=== PATIENT | male | born 1955 | race Caucasian/White ===

== ENCOUNTER 2018-07-28 15:51 | Inpatient (IN) | payer OTHER ==
[~2018-07-28] VITALS: Ht 180.3 cm; Wt 99.4 kg
[2018-07-28] MEDS ORDERED: PLEASE ENTER HEIGHT AND WEIGHT MC SCH (16:30)
[2018-07-28] MEDS ORDERED: SODIUM CHLORIDE FLUSH 10ML SYR IVF ONE (16:30)
[2018-07-28] MEDS ORDERED: PLEASE ENTER ALLERGIES MC SCH (16:30)
[2018-07-28 16:49] LABS: BASOPHILS # (AUTO) 0.03 x10^3/uL (0-0.1); BASOPHILS % (AUTO) 0 % (0-1); EOSINOPHILS # (AUTO) 0.11 x10^3/uL (0-0.4); EOSINOPHILS % (AUTO) 1 % (1-7); LYMPHOCYTES # (AUTO) 1.26 x10^3/uL (1-3.4); LYMPHOCYTES % (AUTO) 8 % (22-44); MD NO; MEAN CORPUSCULAR HEMOGLOBIN 28.5 pg (27.5-34.5); MEAN CORPUSCULAR VOLUME 89.3 fL (81-97); MEAN PLATELET VOLUME 6.9 fL (7.4-10.4); MONOCYTES # (AUTO) 0.81 x10^3/uL (0.2-0.8); MONOCYTES % (AUTO) 5 % (2-9); NEUTROPHILS # (AUTO) 14.35 x10^3/uL (1.8-6.8); NEUTROPHILS % (AUTO) 87 % (42-75); PLATELET COUNT 561 x10^3/uL (130-400); RED BLOOD COUNT 4.08 x10^6/uL (4.38-5.82); RED CELL DISTRIBUTION WIDTH 15.1 % (9.4-14.8)
[2018-07-28 16:56] LABS: ALBUMIN 2.3 g/dL (3.4-5.0); ANION GAP 10 mmol/L (5-15); CHLORIDE 98 mmol/L (98-107)
[2018-07-28 17:01] LABS: CREATININE 1.98 mg/dL (0.7-1.3); TROPONIN I < 0.015 ng/mL (0.000-0.045)
--- NOTE | 2018-07-28 17:29 | NUR ---
DISCHARGE COORDINATOR: PT TO ROOM VIA WHEELCHAIR FROM
--- NOTE | 2018-07-28 17:40 | NUR ---
pt in radiology at this time.
--- NOTE | 2018-07-28 18:05 | NUR ---
pt still in radiology
--- NOTE | 2018-07-28 18:27 | NUR ---
pt presented to ed with bilateral lower extremity edema with 3+ pitting edema and bilaterla lower extremity open wounds. pt with rash throughout abd area and legs.
--- NOTE | 2018-07-28 18:28 | NUR ---
PT TO ROOM AND PLACED ON BP, CARDIAC AND CONT PULSE OXIMETER. ASSESSMENT COMPLETED. ORDERS RECEIVED.
[2018-07-28] MEDS ORDERED: VANCOMYCIN PER PHARMACY MC ONE (18:30)
[2018-07-28] MEDS ORDERED: CEFTRIAXONE PMX 1GM/50ML 50 ML IVPB ONE (18:30)
[2018-07-28] MEDS ORDERED: SODIUM CHLORIDE 0.9% 1,000ML IVBOLUS ONE (18:30)
[2018-07-28] MEDS ORDERED: SODIUM CHLORIDE 0.9% 1,000 ML IV ONE (18:40)
[2018-07-28] MEDS ORDERED: CEFTRIAXONE PMX 1GM/50ML 50 ML ONE (18:50)
--- NOTE | 2018-07-28 18:54 | NUR ---
called lab and blood cultures drawn x 2. antibiotics hung per md order.
[2018-07-28] MEDS ORDERED: VANCOMYCIN 2,100 MG in SODIUM CHLORIDE 0.9% 500 ML IV ONE (19:00)
--- NOTE | 2018-07-28 19:00 | NUR ---
Report received and care assumed. Warm blanket and pillow given for pt comfort. Declines other needs at this time. IV antibiotics infusing with NS as well. Per report, NS to infuse 150ml/hr s/t pt with severe LE swelling and hx of CHF. No bolus given. VSS. Pt with weeping wounds to bilat legs--states he has been taking antibiotics for 3 weeks with no relief and yesterday, began to feel too weak. Discussed use of call light and urinal placed at bedside. Call light in reach. Awaiting further dispo.
[2018-07-28] MEDS ORDERED: ASPI-515 PO (19:03)
[2018-07-28] MEDS ORDERED: DOXY100T PO (19:04)
[2018-07-28] MEDS ORDERED: GABA300C10 PO (19:05)
[2018-07-28] MEDS ORDERED: GLIM1TAB2 PO (19:06)
[2018-07-28] MEDS ORDERED: FURO20TA3 PO (19:06)
[2018-07-28] MEDS ORDERED: TAMS-11 PO (19:07)
[2018-07-28] MEDS ORDERED: HYDR25TA6 PO (19:07)
[2018-07-28] MEDS ORDERED: SIMV40TA3 PO (19:08)
[2018-07-28] MEDS ORDERED: SPIR25TA5 PO (19:08)
[2018-07-28] MEDS ORDERED: METF500T17 PO (19:09)
[2018-07-28] MEDS ORDERED: CETI10TA32 PO (19:10)
--- NOTE | 2018-07-28 19:10 | NUR ---
report given to chanell vivar
--- NOTE | 2018-07-28 19:55 | NUR ---
Rocephianika completed. Vancomycin infusing via pump. VSS. No needs expressed. Awaiting transfer to floor. Call light in reach.
--- NOTE | 2018-07-28 20:19 | NUR ---
Pt to floor with antibiotics and fluids infusing.
[2018-07-28 20:55] VITALS: BP 137/66
[2018-07-28] MEDS ORDERED: VANCOMYCIN PER PHARMACY MC PRN (21:30)
[2018-07-28] MEDS ORDERED: PHARMACY MAY ADJ FOR RENAL FX MC PRN (21:30)
[2018-07-28] MEDS ORDERED: SODIUM CHLORIDE 0.9% 1,000 ML IV SCH (21:38)
[2018-07-28] MEDS ORDERED: ONDANSETRON ODT 4 MG PO PRN (22:00)
[2018-07-28] MEDS ORDERED: DOCUSATE 100 MG CAPSULE PO PRN (22:00)
[2018-07-28] MEDS ORDERED: TEMAZEPAM 15 MG CAPSULE PO PRN (22:00)
[2018-07-28 22:27] LABS: BILIRUBIN, DIRECT 0.1 mg/dL (0.1-0.2)
[2018-07-28 22:29] LABS: BILIRUBIN,INDIRECT 0.1 mg/dL (0.0-2.0); BILIRUBIN,TOTAL 0.2 mg/dL (0.2-1.0)
[2018-07-28] MEDS: GABAPENTIN 300 MG CAPSULE PO SCH (22:37)
[2018-07-28] MEDS: SIMVASTATIN 40 MG TABLET PO SCH (22:38)
[2018-07-28] MEDS: HEPARIN 5,000 UNITS/ML, 1ML SQ SCH (22:38)
[2018-07-29 02:32] VITALS: BP 149/95
[2018-07-29 06:07] LABS: ANION GAP 6 mmol/L (5-15); CALCIUM 8.6 mg/dL (8.5-10.1); CHLORIDE 101 mmol/L (98-107); CREATININE 1.08 mg/dL (0.7-1.3)
[2018-07-29 06:12] LABS: BASOPHILS # (AUTO) 0.03 x10^3/uL (0-0.1); BASOPHILS % (AUTO) 0 % (0-1); EOSINOPHILS # (AUTO) 0.29 x10^3/uL (0-0.4); EOSINOPHILS % (AUTO) 2 % (1-7); LYMPHOCYTES # (AUTO) 1.19 x10^3/uL (1-3.4); LYMPHOCYTES % (AUTO) 10 % (22-44); MD NO; MEAN CORPUSCULAR HEMOGLOBIN 28.5 pg (27.5-34.5); MEAN CORPUSCULAR VOLUME 89.1 fL (81-97); MEAN PLATELET VOLUME 6.9 fL (7.4-10.4); MONOCYTES # (AUTO) 0.93 x10^3/uL (0.2-0.8); MONOCYTES % (AUTO) 8 % (2-9); NEUTROPHILS # (AUTO) 9.82 x10^3/uL (1.8-6.8); NEUTROPHILS % (AUTO) 80 % (42-75); PLATELET COUNT 474 x10^3/uL (130-400); RED BLOOD COUNT 3.54 x10^6/uL (4.38-5.82); RED CELL DISTRIBUTION WIDTH 15.3 % (9.4-14.8)
[2018-07-29] MEDS: HEPARIN 5,000 UNITS/ML, 1ML SQ SCH ×3 (06:24→21:11)
[2018-07-29] MEDS: CEFTRIAXONE PMX 1GM/50ML 50 ML IV SCH ×2 (06:25→18:10)
[2018-07-29 08:18] VITALS: BP 135/74
[2018-07-29] MEDS ORDERED: HYDROCHLOROTHIAZIDE 25 MG TABLET PO SCH (09:00)
[2018-07-29] MEDS ORDERED: SPIRONOLACTONE 25 MG TABLET PO SCH (09:00)
[2018-07-29] MEDS: CETIRIZINE 10 MG TABLET PO SCH (09:03)
[2018-07-29] MEDS: ASPIRIN 81 MG TABLET EC PO SCH (09:04)
[2018-07-29] MEDS: TAMSULOSIN 0.4 MG CAP.ER.24H PO SCH (09:04)
[2018-07-29] MEDS: GABAPENTIN 300 MG CAPSULE PO SCH ×3 (09:04→21:11)
[2018-07-29] MEDS: INSULIN LISPRO 100 UNITS/ML, PEN SQ-INSULIN SCH ×4 (09:56→21:18)
[2018-07-29 09:58] LABS: MICROSCOPIC AUTO
[2018-07-29 10:09] LABS: CULTURE INDICATED? NO
[2018-07-29] MEDS: SODIUM CHLORIDE 0.9% 1,000 ML IV SCH (12:50)
[2018-07-29] MEDS: VANCOMYCIN 2,000 MG in SODIUM CHLORIDE 0.9% 500 ML IV SCH (13:00)
[2018-07-29 13:17] LABS: HEMOGLOBIN A1C 8.5 % (4.2-6.3)
[2018-07-29 14:17] VITALS: BP 128/74
[2018-07-29] MEDS: MUPIROCIN OINT 2%, 22GM TP SCH (17:11)
[2018-07-29 19:06] VITALS: BP 120/66
[2018-07-29] MEDS ORDERED: VANCOMYCIN 2,000 MG in SODIUM CHLORIDE 0.9% 500 ML IV SCH (20:00)
[2018-07-29] MEDS: SIMVASTATIN 40 MG TABLET PO SCH (21:11)
[2018-07-29] MEDS: ACETAMINOPHEN 325 MG TABLET PO PRN (21:17)
[2018-07-30 03:46] VITALS: BP 136/79
[2018-07-30] MEDS: SODIUM CHLORIDE 0.9% 1,000 ML IV SCH (06:04)
[2018-07-30] MEDS: HEPARIN 5,000 UNITS/ML, 1ML SQ SCH ×3 (06:04→20:36)
[2018-07-30] MEDS: CEFTRIAXONE PMX 1GM/50ML 50 ML IV SCH ×2 (06:04→18:08)
[2018-07-30] MEDS: MUPIROCIN OINT 2%, 22GM TP SCH ×2 (06:04→18:00)
[2018-07-30 06:57] VITALS: BP 151/79
[2018-07-30 07:40] LABS: MEAN CORPUSCULAR HEMOGLOBIN 28.8 pg (27.5-34.5); MEAN CORPUSCULAR HGB CONC 32.5 g/dL (33.2-36.2); MEAN CORPUSCULAR VOLUME 88.5 fL (81-97); MEAN PLATELET VOLUME 6.7 fL (7.4-10.4); PLATELET COUNT 617 x10^3/uL (130-400); RED BLOOD COUNT 3.81 x10^6/uL (4.38-5.82); RED CELL DISTRIBUTION WIDTH 14.7 % (9.4-14.8)
[2018-07-30 07:44] LABS: ALBUMIN 1.9 g/dL (3.4-5.0); ANION GAP 6 mmol/L (5-15); CHLORIDE 99 mmol/L (98-107); CREATININE 1.05 mg/dL (0.7-1.3)
[2018-07-30 07:59] LABS: BASOPHILS # (AUTO) 0.03 x10^3/uL (0-0.1); BASOPHILS % (AUTO) 0 % (0-1); EOSINOPHILS # (AUTO) 0.11 x10^3/uL (0-0.4); EOSINOPHILS % (AUTO) 1 % (1-7); LYMPHOCYTES # (AUTO) 1.19 x10^3/uL (1-3.4); LYMPHOCYTES % (AUTO) 10 % (22-44); MD SCAN; MONOCYTES # (AUTO) 0.79 x10^3/uL (0.2-0.8); MONOCYTES % (AUTO) 6 % (2-9); NEUTROPHILS # (AUTO) 10.39 x10^3/uL (1.8-6.8); NEUTROPHILS % (AUTO) 83 % (42-75)
[2018-07-30] MEDS: INSULIN LISPRO 100 UNITS/ML, PEN SQ-INSULIN SCH ×4 (08:12→21:00)
[2018-07-30] MEDS: CETIRIZINE 10 MG TABLET PO SCH (08:12)
[2018-07-30] MEDS: GABAPENTIN 300 MG CAPSULE PO SCH ×3 (08:12→20:34)
[2018-07-30] MEDS: TAMSULOSIN 0.4 MG CAP.ER.24H PO SCH (08:12)
[2018-07-30] MEDS: ASPIRIN 81 MG TABLET EC PO SCH (08:13)
[2018-07-30] MEDS: VANCOMYCIN 2,000 MG in SODIUM CHLORIDE 0.9% 500 ML IV SCH ×2 (09:04→11:18)
[2018-07-30] MEDS ORDERED: NAPROXEN 500 MG TABLET PO PRN (09:30)
[2018-07-30] MEDS ORDERED: BISACODYL 10 MG SUPP PR PRN (11:00)
[2018-07-30] MEDS ORDERED: DOCUSATE 100 MG CAPSULE ONE (11:01)
[2018-07-30] MEDS ORDERED: POLYETHYLENE GLYCOL 17 GM PACKET ONE (11:01)
[2018-07-30] MEDS: POLYETHYLENE GLYCOL 17 GM PACKET PO SCH (11:06)
[2018-07-30] MEDS: DOCUSATE 100 MG CAPSULE PO SCH ×2 (11:09→20:40)
[2018-07-30 14:42] VITALS: BP 142/76
[2018-07-30 19:39] VITALS: BP 140/69
[2018-07-30] MEDS: SIMVASTATIN 40 MG TABLET PO SCH (20:34)
[2018-07-30] MEDS: metFORMIN 500 MG TABLET PO SCH (20:35)
[2018-07-31 00:23] VITALS: BP 152/77
[2018-07-31] MEDS: VANCOMYCIN 2,000 MG in SODIUM CHLORIDE 0.9% 500 ML IV SCH ×2 (01:49→20:35)
[2018-07-31] MEDS: SODIUM CHLORIDE 0.9% 1,000 ML IV SCH (01:49)
[2018-07-31 05:04] LABS: BASOPHILS # (AUTO) 0.02 x10^3/uL (0-0.1); BASOPHILS % (AUTO) 0 % (0-1); EOSINOPHILS # (AUTO) 0.09 x10^3/uL (0-0.4); EOSINOPHILS % (AUTO) 1 % (1-7); LYMPHOCYTES % (AUTO) 9 % (22-44); MD NO; MEAN CORPUSCULAR HEMOGLOBIN 28.7 pg (27.5-34.5); MEAN CORPUSCULAR HGB CONC 32.7 g/dL (33.2-36.2); MEAN CORPUSCULAR VOLUME 87.8 fL (81-97); MEAN PLATELET VOLUME 6.5 fL (7.4-10.4); MONOCYTES # (AUTO) 0.89 x10^3/uL (0.2-0.8); MONOCYTES % (AUTO) 7 % (2-9); NEUTROPHILS # (AUTO) 10.61 x10^3/uL (1.8-6.8); NEUTROPHILS % (AUTO) 83 % (42-75); PLATELET COUNT 600 x10^3/uL (130-400); RED BLOOD COUNT 3.72 x10^6/uL (4.38-5.82)
[2018-07-31 05:13] LABS: ANION GAP 5 mmol/L (5-15); CALCIUM 8.7 mg/dL (8.5-10.1); CHLORIDE 99 mmol/L (98-107); CREATININE 0.73 mg/dL (0.7-1.3)
[2018-07-31] MEDS: CEFTRIAXONE PMX 1GM/50ML 50 ML IV SCH (05:44)
[2018-07-31] MEDS: HEPARIN 5,000 UNITS/ML, 1ML SQ SCH ×3 (05:44→22:48)
[2018-07-31] MEDS: MUPIROCIN OINT 2%, 22GM TP SCH ×2 (05:45→18:01)
[2018-07-31] MEDS: ACETAMINOPHEN 325 MG TABLET PO PRN (05:45)
[2018-07-31 07:45] VITALS: BP 156/77
[2018-07-31] MEDS: DOCUSATE 100 MG CAPSULE PO SCH ×2 (08:53→21:37)
[2018-07-31] MEDS: CETIRIZINE 10 MG TABLET PO SCH (08:53)
[2018-07-31] MEDS: GABAPENTIN 300 MG CAPSULE PO SCH ×3 (08:53→21:37)
[2018-07-31] MEDS: metFORMIN 500 MG TABLET PO SCH ×2 (08:53→21:37)
[2018-07-31] MEDS: POLYETHYLENE GLYCOL 17 GM PACKET PO SCH (08:53)
[2018-07-31] MEDS: ASPIRIN 81 MG TABLET EC PO SCH (08:53)
[2018-07-31] MEDS: TAMSULOSIN 0.4 MG CAP.ER.24H PO SCH (08:53)
[2018-07-31] MEDS: INSULIN LISPRO 100 UNITS/ML, PEN SQ-INSULIN SCH ×4 (09:00→21:40)
[2018-07-31 12:12] VITALS: BP 151/83
[2018-07-31 19:53] VITALS: BP 149/73
[2018-07-31] MEDS: SIMVASTATIN 40 MG TABLET PO SCH (21:37)
[2018-08-01 03:03] VITALS: BP 145/72
[2018-08-01] MEDS: MUPIROCIN OINT 2%, 22GM TP SCH ×2 (06:12→17:13)
[2018-08-01] MEDS: HEPARIN 5,000 UNITS/ML, 1ML SQ SCH ×3 (06:12→21:21)
[2018-08-01] MEDS: ACETAMINOPHEN 325 MG TABLET PO PRN (06:24)
[2018-08-01] MEDS: GLIMEPIRIDE 1 MG TABLET PO SCH (08:50)
[2018-08-01] MEDS: CETIRIZINE 10 MG TABLET PO SCH (08:50)
[2018-08-01] MEDS: FUROSEMIDE 20 MG TABLET PO SCH (08:50)
[2018-08-01] MEDS: TAMSULOSIN 0.4 MG CAP.ER.24H PO SCH (08:51)
[2018-08-01] MEDS: POLYETHYLENE GLYCOL 17 GM PACKET PO SCH (08:51)
[2018-08-01] MEDS: DOCUSATE 100 MG CAPSULE PO SCH ×2 (08:51→21:23)
[2018-08-01] MEDS: GABAPENTIN 300 MG CAPSULE PO SCH ×3 (08:51→21:23)
[2018-08-01] MEDS: metFORMIN 500 MG TABLET PO SCH ×2 (08:51→21:24)
[2018-08-01] MEDS: ASPIRIN 81 MG TABLET EC PO SCH (08:51)
[2018-08-01] MEDS: INSULIN LISPRO 100 UNITS/ML, PEN SQ-INSULIN SCH ×4 (08:52→21:22)
[2018-08-01 10:30] VITALS: BP 138/88
[2018-08-01] MEDS: VANCOMYCIN 2,000 MG in SODIUM CHLORIDE 0.9% 500 ML IV SCH (13:55)
[2018-08-01 15:04] VITALS: BP 157/88
[2018-08-01 20:45] VITALS: BP 152/83
[2018-08-01] MEDS: SIMVASTATIN 40 MG TABLET PO SCH (21:24)
[2018-08-02 03:55] VITALS: BP 150/73
[2018-08-02 06:09] LABS: ALBUMIN 1.9 g/dL (3.4-5.0); ANION GAP 7 mmol/L (5-15); CALCIUM 8.2 mg/dL (8.5-10.1); CHLORIDE 89 mmol/L (98-107); CREATININE 0.77 mg/dL (0.7-1.3)
[2018-08-02] MEDS: HEPARIN 5,000 UNITS/ML, 1ML SQ SCH ×3 (06:18→22:33)
[2018-08-02] MEDS: MUPIROCIN OINT 2%, 22GM TP SCH ×2 (06:18→20:15)
[2018-08-02 06:21] LABS: MEAN CORPUSCULAR HEMOGLOBIN 28.9 pg (27.5-34.5); MEAN CORPUSCULAR HGB CONC 32.9 g/dL (33.2-36.2); MEAN CORPUSCULAR VOLUME 87.7 fL (81-97); RED BLOOD COUNT 3.97 x10^6/uL (4.38-5.82)
[2018-08-02 06:41] LABS: BASOPHILS # (AUTO) 0.02 x10^3/uL (0-0.1); BASOPHILS % (AUTO) 0 % (0-1); EOSINOPHILS # (AUTO) 0.08 x10^3/uL (0-0.4); EOSINOPHILS % (AUTO) 1 % (1-7); LYMPHOCYTES # (AUTO) 1.28 x10^3/uL (1-3.4); LYMPHOCYTES % (AUTO) 8 % (22-44); MD SCAN; MEAN PLATELET VOLUME 6.6 fL (7.4-10.4); MONOCYTES # (AUTO) 1.03 x10^3/uL (0.2-0.8); MONOCYTES % (AUTO) 6 % (2-9); NEUTROPHILS # (AUTO) 13.85 x10^3/uL (1.8-6.8); NEUTROPHILS % (AUTO) 85 % (42-75); PLATELET COUNT 754 x10^3/uL (130-400)
[2018-08-02 07:32] VITALS: BP 143/88
[2018-08-02] MEDS: INSULIN LISPRO 100 UNITS/ML, PEN SQ-INSULIN SCH ×4 (08:18→19:58)
[2018-08-02] MEDS: VANCOMYCIN 2,000 MG in SODIUM CHLORIDE 0.9% 500 ML IV SCH (08:18)
[2018-08-02] MEDS: FUROSEMIDE 20 MG TABLET PO SCH (08:23)
[2018-08-02] MEDS: CETIRIZINE 10 MG TABLET PO SCH (08:23)
[2018-08-02] MEDS: TAMSULOSIN 0.4 MG CAP.ER.24H PO SCH (08:23)
[2018-08-02] MEDS: ASPIRIN 81 MG TABLET EC PO SCH (08:23)
[2018-08-02] MEDS: DOCUSATE 100 MG CAPSULE PO SCH ×2 (08:24→21:00)
[2018-08-02] MEDS: POLYETHYLENE GLYCOL 17 GM PACKET PO SCH (08:24)
[2018-08-02] MEDS: GABAPENTIN 300 MG CAPSULE PO SCH ×3 (08:24→21:00)
[2018-08-02] MEDS: GLIMEPIRIDE 1 MG TABLET PO SCH (08:24)
[2018-08-02] MEDS: metFORMIN 500 MG TABLET PO SCH (10:24)
[2018-08-02] MEDS ORDERED: SODIUM CHLORIDE 0.9% 1,000 ML IV SCH (12:30)
[2018-08-02 13:39] LABS: MICROSCOPIC AUTO
[2018-08-02 13:40] LABS: CULTURE INDICATED? NO
[2018-08-02 13:43] LABS: CHLORIDE,URINE RANDOM 152 mmol/L; POTASSIUM,URINE RANDOM 36 mmol/L; SODIUM,URINE RANDOM 147 mmol/L
[2018-08-02 14:01] VITALS: BP 152/94
[2018-08-02 15:02] LABS: OSMOLALITY,URINE 557 mOsm/kg (500-850)
[2018-08-02 16:01] LABS: HCT (SEDRATE) 35.6 % (39.2-51.8)
[2018-08-02 16:12] LABS: ANION GAP 7 mmol/L (5-15); CALCIUM 8.2 mg/dL (8.5-10.1); CHLORIDE 89 mmol/L (98-107); CREATININE 0.79 mg/dL (0.7-1.3)
[2018-08-02 16:34] VITALS: BP 133/93
[2018-08-02] MEDS ORDERED: methylPREDNISolone SOD SUCC 125 MG/2 ML IVPush ONE (17:08)
[2018-08-02] MEDS ORDERED: LORazepam 2 MG/ML, 1ML IVPush ONE (17:49)
[2018-08-02] MEDS ORDERED: LORazepam 2 MG/ML, 1ML ONE (17:53)
[2018-08-02] MEDS ORDERED: LORazepam 2 MG/ML, 1ML IVPush STA (18:16)
[2018-08-02] MEDS: hydrALAzine 20 MG/ML, 1ML IVPush PRN (19:57)
[2018-08-02] MEDS: SIMVASTATIN 40 MG TABLET PO SCH (21:00)
[2018-08-02] MEDS ORDERED: ENALAPRILAT 1.25 MG/ML, 2ML IVPush PRN (22:00)
[2018-08-02 23:27] LABS: ANION GAP 10 mmol/L (5-15); CALCIUM 8.5 mg/dL (8.5-10.1); CHLORIDE 87 mmol/L (98-107); CREATININE 0.77 mg/dL (0.7-1.3)
[2018-08-03] MEDS: VANCOMYCIN 2,000 MG in SODIUM CHLORIDE 0.9% 500 ML IV SCH ×2 (02:03→20:22)
[2018-08-03 04:00] VITALS: BP 133/84
[2018-08-03 04:50] LABS: MEAN CORPUSCULAR VOLUME 87.9 fL (81-97); MEAN PLATELET VOLUME 6.4 fL (7.4-10.4); PLATELET COUNT 769 x10^3/uL (130-400); RED BLOOD COUNT 4.23 x10^6/uL (4.38-5.82); RED CELL DISTRIBUTION WIDTH 14.3 % (9.4-14.8)
[2018-08-03 05:04] LABS: CHLORIDE 91 mmol/L (98-107)
[2018-08-03 05:14] LABS: ALANINE AMINOTRANSFERASE 25 U/L (12-78); ALBUMIN 1.9 g/dL (3.4-5.0); ALKALINE PHOSPHATASE 92 U/L (45-117); ANION GAP 10 mmol/L (5-15); BILIRUBIN,TOTAL 0.4 mg/dL (0.2-1.0); CALCIUM 8.2 mg/dL (8.5-10.1); CREATININE 0.81 mg/dL (0.7-1.3)
[2018-08-03 05:39] LABS: MD YES
[2018-08-03 05:41] LABS: HYPOCHROMIA 1+; LYMPH#(MANUAL) 0.79 x10^3/uL (1-3.4); LYMPHS% (MANUAL) 5 % (22-44); SEG#(MANUAL) 15.01 x10^3/uL (1.8-6.8); SEGS% (MANUAL) 95 % (42-75)
[2018-08-03 05:43] LABS: <PLATELET ESTIMATE> INCREASED; <PLT MORPHOLOGY> NORMAL PLT MORPH; OVALOCYTES 1+
[2018-08-03] MEDS: HEPARIN 5,000 UNITS/ML, 1ML SQ SCH ×3 (06:26→21:39)
[2018-08-03] MEDS: MUPIROCIN OINT 2%, 22GM TP SCH ×2 (06:26→20:22)
[2018-08-03] MEDS: INSULIN LISPRO 100 UNITS/ML, PEN SQ-INSULIN SCH ×4 (07:59→21:42)
[2018-08-03] MEDS: POLYETHYLENE GLYCOL 17 GM PACKET PO SCH (08:13)
[2018-08-03] MEDS: DOCUSATE 100 MG CAPSULE PO SCH (08:13)
[2018-08-03] MEDS: ASPIRIN 81 MG TABLET EC PO SCH (08:13)
[2018-08-03] MEDS: TAMSULOSIN 0.4 MG CAP.ER.24H PO SCH (08:13)
[2018-08-03] MEDS: CETIRIZINE 10 MG TABLET PO SCH (08:14)
[2018-08-03] MEDS: GABAPENTIN 300 MG CAPSULE PO SCH (08:14)
[2018-08-03 09:02] LABS: ANION GAP 6 mmol/L (5-15); CALCIUM 8.6 mg/dL (8.5-10.1); CHLORIDE 94 mmol/L (98-107); CREATININE 1.16 mg/dL (0.7-1.3)
[2018-08-03 12:09] LABS: CHLORIDE 94 mmol/L (98-107)
[2018-08-03 12:22] LABS: ANION GAP 7 mmol/L (5-15)
[2018-08-03 14:28] LABS: GLUCOSE, CSF 129 mg/dL (40-80); TOTAL PROTEIN,CSF 155 mg/dL (15-45)
[2018-08-03] MEDS: AZITHROMYCIN 500 MG in SODIUM CHLORIDE 0.9% 250 ML IV SCH (14:30)
[2018-08-03 19:42] LABS: ANION GAP 9 mmol/L (5-15); CALCIUM 8.9 mg/dL (8.5-10.1); CHLORIDE 98 mmol/L (98-107)
[2018-08-03] MEDS: FAMOTIDINE 20 MG/2 ML IVPush SCH (21:39)
[2018-08-03 23:56] LABS: ANION GAP 5 mmol/L (5-15); CALCIUM 8.7 mg/dL (8.5-10.1); CHLORIDE 99 mmol/L (98-107); CREATININE 0.74 mg/dL (0.7-1.3)
[2018-08-04 03:49] LABS: BASOPHILS # (AUTO) 0.02 x10^3/uL (0-0.1); BASOPHILS % (AUTO) 0 % (0-1); EOSINOPHILS # (AUTO) 0.03 x10^3/uL (0-0.4); EOSINOPHILS % (AUTO) 0 % (1-7); LYMPHOCYTES % (AUTO) 6 % (22-44); MD NO; MEAN CORPUSCULAR HEMOGLOBIN 28.9 pg (27.5-34.5); MEAN CORPUSCULAR HGB CONC 32.8 g/dL (33.2-36.2); MEAN CORPUSCULAR VOLUME 88.3 fL (81-97); MEAN PLATELET VOLUME 6.2 fL (7.4-10.4); MONOCYTES # (AUTO) 1.02 x10^3/uL (0.2-0.8); MONOCYTES % (AUTO) 7 % (2-9); NEUTROPHILS # (AUTO) 12.06 x10^3/uL (1.8-6.8); NEUTROPHILS % (AUTO) 86 % (42-75); PLATELET COUNT 887 x10^3/uL (130-400); RED BLOOD COUNT 4.45 x10^6/uL (4.38-5.82); RED CELL DISTRIBUTION WIDTH 14.7 % (9.4-14.8)
[2018-08-04 04:00] VITALS: BP 140/80
[2018-08-04 04:03] LABS: ALANINE AMINOTRANSFERASE 26 U/L (12-78); ALBUMIN 2.1 g/dL (3.4-5.0); ANION GAP 6 mmol/L (5-15); CALCIUM 8.5 mg/dL (8.5-10.1); CHLORIDE 98 mmol/L (98-107); CREATININE 0.77 mg/dL (0.7-1.3)
[2018-08-04 04:05] LABS: ALKALINE PHOSPHATASE 82 U/L (45-117); BILIRUBIN,TOTAL 0.2 mg/dL (0.2-1.0); TOTAL PROTEIN 7.5 g/dL (6.4-8.2)
[2018-08-04] MEDS: HEPARIN 5,000 UNITS/ML, 1ML SQ SCH ×3 (05:04→21:46)
[2018-08-04] MEDS: MUPIROCIN OINT 2%, 22GM TP SCH ×2 (05:04→17:18)
[2018-08-04] MEDS: INSULIN LISPRO 100 UNITS/ML, PEN SQ-INSULIN SCH ×4 (05:09→19:56)
[2018-08-04 06:44] LABS: AMPHETAMINE SCREEN, URINE Negative (Negative); BARBITURATE SCREEN, URINE Negative (Negative); BENZODIAZEPINE SCREEN, URINE Negative (Negative); CANNABINOID SCREEN, URINE Negative (Negative); COCAINE SCREEN, URINE Negative (Negative); METHADONE SCREEN, URINE Negative (Negative); OPIATE SCREEN, URINE Negative (Negative)
[2018-08-04] MEDS: AZITHROMYCIN 500 MG in SODIUM CHLORIDE 0.9% 250 ML IV SCH (09:59)
[2018-08-04] MEDS: VANCOMYCIN 2,000 MG in SODIUM CHLORIDE 0.9% 500 ML IV SCH (13:58)
[2018-08-04] MEDS: FAMOTIDINE 20 MG/2 ML IVPush SCH (19:56)
[2018-08-04] MEDS: hydrALAzine 20 MG/ML, 1ML IVPush PRN (22:03)
[2018-08-05] MEDS: hydrALAzine 20 MG/ML, 1ML IVPush PRN ×3 (02:02→14:11)
[2018-08-05] MEDS: INSULIN LISPRO 100 UNITS/ML, PEN SQ-INSULIN SCH ×4 (04:14→20:57)
[2018-08-05 04:48] LABS: MEAN CORPUSCULAR HEMOGLOBIN 28.8 pg (27.5-34.5); MEAN CORPUSCULAR HGB CONC 32.3 g/dL (33.2-36.2); MEAN CORPUSCULAR VOLUME 89.1 fL (81-97); MEAN PLATELET VOLUME 6.2 fL (7.4-10.4); PLATELET COUNT 862 x10^3/uL (130-400); RED BLOOD COUNT 4.86 x10^6/uL (4.38-5.82); RED CELL DISTRIBUTION WIDTH 15.2 % (9.4-14.8)
[2018-08-05 04:56] LABS: ANION GAP 10 mmol/L (5-15); CHLORIDE 99 mmol/L (98-107); CREATININE 0.76 mg/dL (0.7-1.3)
[2018-08-05] MEDS: MUPIROCIN OINT 2%, 22GM TP SCH ×2 (05:45→16:50)
[2018-08-05] MEDS: HEPARIN 5,000 UNITS/ML, 1ML SQ SCH ×3 (05:46→20:47)
[2018-08-05 05:56] LABS: BASOPHILS # (AUTO) 0.09 x10^3/uL (0-0.1); BASOPHILS % (AUTO) 1 % (0-1); EOSINOPHILS # (AUTO) 0.06 x10^3/uL (0-0.4); EOSINOPHILS % (AUTO) 0 % (1-7); LYMPHOCYTES # (AUTO) 1.02 x10^3/uL (1-3.4); LYMPHOCYTES % (AUTO) 5 % (22-44); MD SCAN; MONOCYTES # (AUTO) 1.46 x10^3/uL (0.2-0.8); MONOCYTES % (AUTO) 8 % (2-9); NEUTROPHILS # (AUTO) 16.49 x10^3/uL (1.8-6.8); NEUTROPHILS % (AUTO) 86 % (42-75)
[2018-08-05] MEDS ORDERED: IMMUNE GLOB (GAMUNEX) 10GM/100ML IV SCH (09:00)
[2018-08-05] MEDS: VANCOMYCIN 2,000 MG in SODIUM CHLORIDE 0.9% 500 ML IV SCH (10:00)
[2018-08-05] MEDS: AZITHROMYCIN 500 MG in SODIUM CHLORIDE 0.9% 250 ML IV SCH (10:00)
--- NOTE | 2018-08-05 10:53 | NUR ---
TF Recommendations: Promote full goal 85 ml/hr Free water fluid flushes as needed to meet hydration needs with no ivf or other fluids given: 100 ml Q 6 hours
[2018-08-05] MEDS: DIPHENHYDRAMINE 50 MG/ML, 1ML IVPush SCH (11:56)
[2018-08-05] MEDS: ACETAMINOPHEN 325 MG TABLET PO SCH (11:56)
[2018-08-05] MEDS: IMMUNE GLOBULIN IV SCH (11:57)
[2018-08-05 13:39] LABS: MICROSCOPIC NOT IND
[2018-08-05 13:47] LABS: CULTURE INDICATED? NO
[2018-08-05] MEDS: FAMOTIDINE 20 MG/2 ML IVPush SCH (20:47)
[2018-08-06] MEDS: VANCOMYCIN 2,000 MG in SODIUM CHLORIDE 0.9% 500 ML IV SCH (02:15)
[2018-08-06] MEDS: INSULIN LISPRO 100 UNITS/ML, PEN SQ-INSULIN SCH ×4 (04:54→20:25)
[2018-08-06] MEDS: MUPIROCIN OINT 2%, 22GM TP SCH ×2 (05:58→15:42)
[2018-08-06] MEDS: HEPARIN 5,000 UNITS/ML, 1ML SQ SCH ×2 (05:58→12:12)
[2018-08-06 09:21] LABS: MEAN CORPUSCULAR HGB CONC 31.7 g/dL (33.2-36.2); MEAN CORPUSCULAR VOLUME 88.3 fL (81-97); MEAN PLATELET VOLUME 6.1 fL (7.4-10.4); PLATELET COUNT 732 x10^3/uL (130-400); RED BLOOD COUNT 4.64 x10^6/uL (4.38-5.82); RED CELL DISTRIBUTION WIDTH 15.4 % (9.4-14.8)
[2018-08-06 09:48] LABS: BASOPHILS # (AUTO) 0.05 x10^3/uL (0-0.1); BASOPHILS % (AUTO) 0 % (0-1); EOSINOPHILS # (AUTO) 0.09 x10^3/uL (0-0.4); EOSINOPHILS % (AUTO) 1 % (1-7); LYMPHOCYTES # (AUTO) 1.03 x10^3/uL (1-3.4); LYMPHOCYTES % (AUTO) 6 % (22-44); MD SCAN; MONOCYTES % (AUTO) 8 % (2-9); NEUTROPHILS # (AUTO) 15.26 x10^3/uL (1.8-6.8); NEUTROPHILS % (AUTO) 86 % (42-75)
[2018-08-06 10:10] LABS: ANION GAP 4 mmol/L (5-15); CHLORIDE 103 mmol/L (98-107); CREATININE 0.75 mg/dL (0.7-1.3)
[2018-08-06] MEDS: IMMUNE GLOBULIN IV SCH (11:53)
[2018-08-06] MEDS: ACETAMINOPHEN 325 MG TABLET PO SCH (11:53)
[2018-08-06] MEDS: DIPHENHYDRAMINE 50 MG/ML, 1ML IVPush SCH (11:53)
[2018-08-06] MEDS: hydrALAzine 20 MG/ML, 1ML IVPush PRN (12:43)
[2018-08-06] MEDS: ARTIFICIAL TEARS OINT 3.5 GM EACHEYE PRN (18:38)
[2018-08-06] MEDS: FAMOTIDINE 20 MG/2 ML IVPush SCH (20:19)
[2018-08-06] MEDS: ENOXAPARIN 40 MG/0.4 ML SQ SCH (20:20)
[2018-08-06] MEDS: LISINOPRIL 10 MG TABLET PO SCH (20:20)
[2018-08-06] MEDS ORDERED: INSULIN GLARGINE 100 UNITS/ML, PEN SQ-INSULIN SCH (21:00)
[2018-08-07] MEDS: ARTIFICIAL TEARS OINT 3.5 GM EACHEYE PRN ×3 (00:58→10:31)
[2018-08-07 04:21] LABS: BASOPHILS # (AUTO) 0.02 x10^3/uL (0-0.1); BASOPHILS % (AUTO) 0 % (0-1); EOSINOPHILS # (AUTO) 0.11 x10^3/uL (0-0.4); EOSINOPHILS % (AUTO) 1 % (1-7); LYMPHOCYTES # (AUTO) 1.25 x10^3/uL (1-3.4); LYMPHOCYTES % (AUTO) 8 % (22-44); MD NO; MEAN CORPUSCULAR HEMOGLOBIN 28.5 pg (27.5-34.5); MEAN CORPUSCULAR HGB CONC 32.3 g/dL (33.2-36.2); MEAN CORPUSCULAR VOLUME 88.2 fL (81-97); MEAN PLATELET VOLUME 6.2 fL (7.4-10.4); MONOCYTES # (AUTO) 1.44 x10^3/uL (0.2-0.8); MONOCYTES % (AUTO) 9 % (2-9); NEUTROPHILS # (AUTO) 13.62 x10^3/uL (1.8-6.8); NEUTROPHILS % (AUTO) 83 % (42-75); PLATELET COUNT 745 x10^3/uL (130-400); RED BLOOD COUNT 4.44 x10^6/uL (4.38-5.82)
[2018-08-07 04:28] LABS: ALANINE AMINOTRANSFERASE 18 U/L (12-78); ANION GAP 3 mmol/L (5-15); CALCIUM 8.8 mg/dL (8.5-10.1); CHLORIDE 103 mmol/L (98-107); CREATININE 0.75 mg/dL (0.7-1.3)
[2018-08-07 04:30] LABS: ALKALINE PHOSPHATASE 78 U/L (45-117); BILIRUBIN,TOTAL 0.3 mg/dL (0.2-1.0); TOTAL PROTEIN 8.7 g/dL (6.4-8.2)
[2018-08-07] MEDS: INSULIN LISPRO 100 UNITS/ML, PEN SQ-INSULIN SCH ×4 (05:25→21:20)
[2018-08-07] MEDS: MUPIROCIN OINT 2%, 22GM TP SCH ×2 (05:27→15:47)
[2018-08-07] MEDS ORDERED: ETOMIDATE 20 MG/10 ML ONE (07:16)
[2018-08-07] MEDS ORDERED: PROPOFOL 10 MG/ML, 100ML IV ONE (07:16)
[2018-08-07] MEDS: ACETAMINOPHEN 325 MG TABLET PO SCH ×2 (09:00→18:04)
[2018-08-07] MEDS: INSULIN GLARGINE 100 UNITS/ML, PEN SQ-INSULIN SCH ×2 (09:40→21:21)
[2018-08-07] MEDS: SODIUM CHLORIDE 0.9% 1,000 ML IV SCH (09:41)
[2018-08-07] MEDS: LISINOPRIL 10 MG TABLET PO SCH (10:35)
[2018-08-07] MEDS: LINEZOLID PMX 600MG/300ML 300 ML IV SCH (18:03)
[2018-08-07] MEDS: PIPERACILLIN/TAZO/PMX 4.5GM 100 ML IV SCH ×2 (18:03→22:29)
[2018-08-07] MEDS ORDERED: SODIUM CHLORIDE 0.9% 1,000ML IVBOLUS ONE ×2 (19:00→20:30)
[2018-08-07] MEDS: ENOXAPARIN 40 MG/0.4 ML SQ SCH (19:42)
[2018-08-07] MEDS ORDERED: NOREPINEPHRINE 8 MG in SODIUM CHLORIDE 0.9% 242 ML IV PRN (21:30)
[2018-08-07 22:52] LABS: CULTURE INDICATED? YES; MICROSCOPIC INDICATED
[2018-08-08] MEDS: INSULIN LISPRO 100 UNITS/ML, PEN SQ-INSULIN SCH ×4 (03:02→21:09)
[2018-08-08] MEDS ORDERED: PROPOFOL 100 ML IV ONE (03:13)
[2018-08-08] MEDS: PIPERACILLIN/TAZO/PMX 4.5GM 100 ML IV SCH ×4 (03:50→23:50)
[2018-08-08 04:04] VITALS: BP 109/49
[2018-08-08] MEDS: LINEZOLID PMX 600MG/300ML 300 ML IV SCH ×2 (04:28→17:32)
[2018-08-08 05:34] LABS: ANION GAP 4 mmol/L (5-15); CALCIUM 8.1 mg/dL (8.5-10.1); CHLORIDE 107 mmol/L (98-107); CREATININE 1.09 mg/dL (0.7-1.3)
[2018-08-08 05:39] LABS: MEAN CORPUSCULAR HEMOGLOBIN 28.8 pg (27.5-34.5); MEAN CORPUSCULAR HGB CONC 32.6 g/dL (33.2-36.2); MEAN CORPUSCULAR VOLUME 88.3 fL (81-97); MEAN PLATELET VOLUME 6.4 fL (7.4-10.4); PLATELET COUNT 518 x10^3/uL (130-400); RED BLOOD COUNT 3.81 x10^6/uL (4.38-5.82); RED CELL DISTRIBUTION WIDTH 16.2 % (9.4-14.8)
[2018-08-08] MEDS: MUPIROCIN OINT 2%, 22GM TP SCH ×2 (05:46→18:00)
[2018-08-08 06:26] LABS: BASOPHILS # (AUTO) 0.02 x10^3/uL (0-0.1); BASOPHILS % (AUTO) 0 % (0-1); EOSINOPHILS # (AUTO) 0.03 x10^3/uL (0-0.4); EOSINOPHILS % (AUTO) 0 % (1-7); LYMPHOCYTES # (AUTO) 1.42 x10^3/uL (1-3.4); LYMPHOCYTES % (AUTO) 6 % (22-44); MD SCAN; MONOCYTES # (AUTO) 1.36 x10^3/uL (0.2-0.8); MONOCYTES % (AUTO) 6 % (2-9); NEUTROPHILS # (AUTO) 19.88 x10^3/uL (1.8-6.8); NEUTROPHILS % (AUTO) 88 % (42-75)
[2018-08-08] MEDS: PROPOFOL 100 ML IV PRN ×3 (06:39→17:33)
[2018-08-08] MEDS ORDERED: NOREPINEPHRINE 4 MG in SODIUM CHLORIDE 0.9% 246 ML IV PRN (08:24)
[2018-08-08] MEDS ORDERED: PROPOFOL 10 MG/ML, 20ML IV ONE (08:30)
[2018-08-08] MEDS ORDERED: SENNA/DOCUSATE TABLET NG PRN (08:30)
[2018-08-08] MEDS ORDERED: BISACODYL 10 MG SUPP PR PRN (08:30)
[2018-08-08] MEDS ORDERED: LIDOCAINE-MPF 1%, 2ML ENDO PRN (08:30)
[2018-08-08] MEDS ORDERED: LACTULOSE 20 GM/30 ML UDC NG PRN (08:30)
[2018-08-08] MEDS ORDERED: PHARMACY MAY ADJ FOR RENAL FX MC SCH (08:30)
[2018-08-08] MEDS ORDERED: SENNA 176 MG/5 ML ORAL SOL NG PRN (08:30)
[2018-08-08] MEDS: LISINOPRIL 10 MG TABLET PO SCH (09:00)
[2018-08-08] MEDS ORDERED: NOREPINEPHRINE 8 MG in SODIUM CHLORIDE 0.9% 242 ML IV PRN (09:00)
[2018-08-08] MEDS ORDERED: MIDAZOLAM 1 MG/ML, 5ML ONE (09:16)
[2018-08-08] MEDS: INSULIN GLARGINE 100 UNITS/ML, PEN SQ-INSULIN SCH ×2 (09:32→21:10)
[2018-08-08] MEDS: ARTIFICIAL TEARS OINT 3.5 GM EACHEYE PRN (09:35)
[2018-08-08] MEDS: ALBUTEROL/IPRATROPIUM 2.5MG/0.5MG, 3 ML INLINE SCH ×4 (11:20→23:05)
[2018-08-08] MEDS: DEXTROSE 5% IV SCH (12:45)
[2018-08-08] MEDS: VORICONAZOLE IV SCH (12:45)
[2018-08-08] MEDS: SODIUM CHLORIDE 0.9% 1,000 ML IV SCH (17:00)
[2018-08-08] MEDS: ENOXAPARIN 40 MG/0.4 ML SQ SCH (21:08)
[2018-08-09] MEDS: VORICONAZOLE IV SCH (01:11)
[2018-08-09] MEDS: DEXTROSE 5% IV SCH (01:11)
[2018-08-09] MEDS: ALBUTEROL/IPRATROPIUM 2.5MG/0.5MG, 3 ML INLINE SCH ×7 (02:46→22:26)
[2018-08-09] MEDS: INSULIN LISPRO 100 UNITS/ML, PEN SQ-INSULIN SCH ×4 (04:11→20:38)
[2018-08-09] MEDS: PIPERACILLIN/TAZO/PMX 4.5GM 100 ML IV SCH ×4 (04:12→23:39)
[2018-08-09 04:24] LABS: BASOPHILS # (AUTO) 0.04 x10^3/uL (0-0.1); BASOPHILS % (AUTO) 0 % (0-1); EOSINOPHILS # (AUTO) 0.04 x10^3/uL (0-0.4); EOSINOPHILS % (AUTO) 0 % (1-7); LYMPHOCYTES # (AUTO) 1.34 x10^3/uL (1-3.4); LYMPHOCYTES % (AUTO) 10 % (22-44); MD NO; MEAN CORPUSCULAR HEMOGLOBIN 28.5 pg (27.5-34.5); MEAN CORPUSCULAR HGB CONC 32.3 g/dL (33.2-36.2); MEAN CORPUSCULAR VOLUME 88.3 fL (81-97); MEAN PLATELET VOLUME 6.4 fL (7.4-10.4); MONOCYTES # (AUTO) 1.09 x10^3/uL (0.2-0.8); MONOCYTES % (AUTO) 8 % (2-9); NEUTROPHILS # (AUTO) 11.46 x10^3/uL (1.8-6.8); NEUTROPHILS % (AUTO) 82 % (42-75); PLATELET COUNT 462 x10^3/uL (130-400); RED BLOOD COUNT 3.48 x10^6/uL (4.38-5.82); RED CELL DISTRIBUTION WIDTH 15.8 % (9.4-14.8)
[2018-08-09 04:33] LABS: ANION GAP 3 mmol/L (5-15); CALCIUM 8.4 mg/dL (8.5-10.1); CHLORIDE 106 mmol/L (98-107)
[2018-08-09 04:34] LABS: CREATININE 0.89 mg/dL (0.7-1.3)
[2018-08-09] MEDS: MUPIROCIN OINT 2%, 22GM TP SCH ×2 (05:07→18:00)
[2018-08-09] MEDS: LINEZOLID PMX 600MG/300ML 300 ML IV SCH ×2 (05:11→17:46)
[2018-08-09] MEDS: LISINOPRIL 10 MG TABLET PO SCH (09:00)
[2018-08-09] MEDS: ACETAMINOPHEN 325 MG TABLET PO SCH (09:00)
[2018-08-09] MEDS: INSULIN GLARGINE 100 UNITS/ML, PEN SQ-INSULIN SCH ×2 (11:24→20:42)
[2018-08-09] MEDS: PROPOFOL 100 ML IV PRN (11:24)
[2018-08-09] MEDS: SODIUM CHLORIDE 0.9% 1,000 ML IV SCH (11:24)
[2018-08-09] MEDS: ALBUMIN HUMAN 25% 100 ML IV SCH ×2 (11:24→17:47)
[2018-08-09] MEDS: VORICONAZOLE 400 MG in DEXTROSE 5% 100 ML IV SCH ×2 (14:00→22:36)
[2018-08-09] MEDS: ENOXAPARIN 40 MG/0.4 ML SQ SCH (20:34)
[2018-08-10] MEDS: ALBUTEROL/IPRATROPIUM 2.5MG/0.5MG, 3 ML INLINE SCH ×6 (02:08→23:00)
[2018-08-10] MEDS: ALBUMIN HUMAN 25% 100 ML IV SCH ×3 (02:15→16:53)
[2018-08-10] MEDS: INSULIN LISPRO 100 UNITS/ML, PEN SQ-INSULIN SCH ×4 (04:02→21:18)
[2018-08-10] MEDS: PIPERACILLIN/TAZO/PMX 4.5GM 100 ML IV SCH ×4 (04:04→21:19)
[2018-08-10] MEDS: PROPOFOL 100 ML IV PRN ×2 (04:11→19:49)
[2018-08-10 04:30] LABS: BASOPHILS # (AUTO) 0.01 x10^3/uL (0-0.1); BASOPHILS % (AUTO) 0 % (0-1); EOSINOPHILS # (AUTO) 0.04 x10^3/uL (0-0.4); EOSINOPHILS % (AUTO) 0 % (1-7); LYMPHOCYTES # (AUTO) 0.98 x10^3/uL (1-3.4); LYMPHOCYTES % (AUTO) 11 % (22-44); MD NO; MEAN CORPUSCULAR HEMOGLOBIN 28.3 pg (27.5-34.5); MEAN CORPUSCULAR HGB CONC 32.4 g/dL (33.2-36.2); MEAN CORPUSCULAR VOLUME 87.4 fL (81-97); MEAN PLATELET VOLUME 6.2 fL (7.4-10.4); MONOCYTES # (AUTO) 0.72 x10^3/uL (0.2-0.8); MONOCYTES % (AUTO) 8 % (2-9); NEUTROPHILS # (AUTO) 7.09 x10^3/uL (1.8-6.8); NEUTROPHILS % (AUTO) 80 % (42-75); PLATELET COUNT 369 x10^3/uL (130-400); RED BLOOD COUNT 3.21 x10^6/uL (4.38-5.82)
[2018-08-10 04:41] LABS: ANION GAP 6 mmol/L (5-15); CALCIUM 8.5 mg/dL (8.5-10.1); CHLORIDE 102 mmol/L (98-107); CREATININE 0.91 mg/dL (0.7-1.3)
[2018-08-10] MEDS: LINEZOLID PMX 600MG/300ML 300 ML IV SCH ×2 (05:54→16:47)
[2018-08-10] MEDS: MUPIROCIN OINT 2%, 22GM TP SCH ×2 (05:58→16:55)
[2018-08-10] MEDS: LISINOPRIL 10 MG TABLET PO SCH (09:00)
[2018-08-10] MEDS: SODIUM CHLORIDE 0.9% 1,000 ML IV SCH (09:00)
[2018-08-10] MEDS: VORICONAZOLE 400 MG in DEXTROSE 5% 100 ML IV SCH ×2 (10:51→22:19)
[2018-08-10] MEDS: INSULIN GLARGINE 100 UNITS/ML, PEN SQ-INSULIN SCH ×2 (10:55→21:18)
[2018-08-10] MEDS: ENOXAPARIN 40 MG/0.4 ML SQ SCH (19:49)
[2018-08-11] MEDS: PROPOFOL 100 ML IV PRN ×4 (00:09→21:50)
[2018-08-11] MEDS: ALBUMIN HUMAN 25% 100 ML IV SCH (01:20)
[2018-08-11] MEDS: INSULIN LISPRO 100 UNITS/ML, PEN SQ-INSULIN SCH ×4 (03:00→21:10)
[2018-08-11] MEDS: ALBUTEROL/IPRATROPIUM 2.5MG/0.5MG, 3 ML INLINE SCH ×6 (03:00→22:37)
[2018-08-11] MEDS: PIPERACILLIN/TAZO/PMX 4.5GM 100 ML IV SCH ×4 (04:45→23:37)
[2018-08-11 05:21] LABS: ANION GAP 7 mmol/L (5-15); CALCIUM 8.7 mg/dL (8.5-10.1); CHLORIDE 101 mmol/L (98-107)
[2018-08-11 05:22] LABS: CREATININE 0.85 mg/dL (0.7-1.3)
[2018-08-11 05:23] LABS: TRIGLYCERIDES 129 mg/dL (50-200)
[2018-08-11 05:24] LABS: BASOPHILS # (AUTO) 0.01 x10^3/uL (0-0.1); BASOPHILS % (AUTO) 0 % (0-1); EOSINOPHILS % (AUTO) 1 % (1-7); LYMPHOCYTES # (AUTO) 1.16 x10^3/uL (1-3.4); LYMPHOCYTES % (AUTO) 16 % (22-44); MD NO; MEAN CORPUSCULAR HEMOGLOBIN 27.8 pg (27.5-34.5); MEAN CORPUSCULAR HGB CONC 31.7 g/dL (33.2-36.2); MEAN CORPUSCULAR VOLUME 87.6 fL (81-97); MEAN PLATELET VOLUME 6.6 fL (7.4-10.4); MONOCYTES # (AUTO) 0.74 x10^3/uL (0.2-0.8); MONOCYTES % (AUTO) 10 % (2-9); NEUTROPHILS # (AUTO) 5.29 x10^3/uL (1.8-6.8); NEUTROPHILS % (AUTO) 73 % (42-75); PLATELET COUNT 312 x10^3/uL (130-400); RED BLOOD COUNT 2.74 x10^6/uL (4.38-5.82); RED CELL DISTRIBUTION WIDTH 16.3 % (9.4-14.8)
[2018-08-11] MEDS: LINEZOLID PMX 600MG/300ML 300 ML IV SCH ×2 (05:43→17:39)
[2018-08-11] MEDS: MUPIROCIN OINT 2%, 22GM TP SCH ×2 (05:51→21:11)
[2018-08-11] MEDS: LISINOPRIL 10 MG TABLET PO SCH (09:00)
[2018-08-11] MEDS: POTASSIUM CHLORIDE 10% 40 MEQ/30 ML UDC PO SCH ×2 (09:08→21:10)
[2018-08-11] MEDS: INSULIN GLARGINE 100 UNITS/ML, PEN SQ-INSULIN SCH ×2 (09:09→21:11)
[2018-08-11] MEDS: VORICONAZOLE 400 MG in DEXTROSE 5% 100 ML IV SCH ×2 (10:40→21:50)
[2018-08-11] MEDS ORDERED: ALBUMIN HUMAN 5% IV SCH (17:30)
[2018-08-11] MEDS ORDERED: CALCIUM GLUCONATE 4.6 MEQ/10 ML IV ONE (17:30)
[2018-08-11] MEDS: ENOXAPARIN 40 MG/0.4 ML SQ SCH (21:10)
[2018-08-12] MEDS: PROPOFOL 100 ML IV PRN ×3 (01:50→11:32)
[2018-08-12] MEDS: INSULIN LISPRO 100 UNITS/ML, PEN SQ-INSULIN SCH ×4 (01:51→20:39)
[2018-08-12] MEDS: SODIUM CHLORIDE 0.9% 1,000 ML IV SCH (02:00)
[2018-08-12] MEDS: ALBUTEROL/IPRATROPIUM 2.5MG/0.5MG, 3 ML INLINE SCH ×6 (02:17→23:00)
[2018-08-12] MEDS: PIPERACILLIN/TAZO/PMX 4.5GM 100 ML IV SCH ×4 (04:35→22:45)
[2018-08-12] MEDS: MUPIROCIN OINT 2%, 22GM TP SCH ×2 (05:07→16:56)
[2018-08-12] MEDS: LINEZOLID PMX 600MG/300ML 300 ML IV SCH ×2 (05:07→16:55)
[2018-08-12 05:14] LABS: BASOPHILS % (AUTO) 0 % (0-1); EOSINOPHILS # (AUTO) 0.15 x10^3/uL (0-0.4); EOSINOPHILS % (AUTO) 2 % (1-7); LYMPHOCYTES # (AUTO) 0.87 x10^3/uL (1-3.4); LYMPHOCYTES % (AUTO) 10 % (22-44); MD NO; MEAN CORPUSCULAR HGB CONC 31.6 g/dL (33.2-36.2); MEAN CORPUSCULAR VOLUME 88.6 fL (81-97); MEAN PLATELET VOLUME 7.1 fL (7.4-10.4); MONOCYTES # (AUTO) 0.67 x10^3/uL (0.2-0.8); MONOCYTES % (AUTO) 8 % (2-9); NEUTROPHILS # (AUTO) 6.79 x10^3/uL (1.8-6.8); NEUTROPHILS % (AUTO) 80 % (42-75); PLATELET COUNT 284 x10^3/uL (130-400); RED BLOOD COUNT 3.47 x10^6/uL (4.38-5.82); RED CELL DISTRIBUTION WIDTH 16.3 % (9.4-14.8)
[2018-08-12 05:15] LABS: ALANINE AMINOTRANSFERASE 23 U/L (12-78); ALBUMIN 3.5 g/dL (3.4-5.0); ANION GAP 7 mmol/L (5-15); CALCIUM 8.4 mg/dL (8.5-10.1); CHLORIDE 108 mmol/L (98-107); CREATININE 0.75 mg/dL (0.7-1.3)
[2018-08-12 05:17] LABS: ALKALINE PHOSPHATASE 61 U/L (45-117); BILIRUBIN,TOTAL 0.8 mg/dL (0.2-1.0)
[2018-08-12] MEDS ORDERED: CALCIUM GLUCONATE 4.6 MEQ/10 ML IV ONE (09:00)
[2018-08-12] MEDS: LISINOPRIL 10 MG TABLET PO SCH (09:00)
[2018-08-12] MEDS ORDERED: ALBUMIN HUMAN 5% IV SCH (09:00)
[2018-08-12] MEDS: INSULIN GLARGINE 100 UNITS/ML, PEN SQ-INSULIN SCH ×2 (09:23→20:39)
[2018-08-12] MEDS: VORICONAZOLE 400 MG in DEXTROSE 5% 100 ML IV SCH ×2 (11:31→20:40)
[2018-08-12] MEDS ORDERED: DEXMEDETOMIDINE 1,000 MCG in SODIUM CHLORIDE 0.9% 240 ML IV PRN (14:00)
[2018-08-12] MEDS: ENOXAPARIN 40 MG/0.4 ML SQ SCH (17:56)
[2018-08-12] MEDS: POTASSIUM ACID PHOSPHATE 500 MG TABLET.SOL NG SCH (17:58)
[2018-08-13] MEDS: POTASSIUM ACID PHOSPHATE 500 MG TABLET.SOL NG SCH ×4 (00:32→18:00)
[2018-08-13] MEDS: ALBUTEROL/IPRATROPIUM 2.5MG/0.5MG, 3 ML INLINE SCH ×5 (02:42→22:38)
[2018-08-13] MEDS: PIPERACILLIN/TAZO/PMX 4.5GM 100 ML IV SCH ×4 (04:17→21:08)
[2018-08-13] MEDS: INSULIN LISPRO 100 UNITS/ML, PEN SQ-INSULIN SCH ×4 (04:23→21:00)
[2018-08-13 04:58] LABS: BASOPHILS # (AUTO) 0.03 x10^3/uL (0-0.1); BASOPHILS % (AUTO) 0 % (0-1); EOSINOPHILS # (AUTO) 0.16 x10^3/uL (0-0.4); EOSINOPHILS % (AUTO) 2 % (1-7); LYMPHOCYTES # (AUTO) 0.91 x10^3/uL (1-3.4); LYMPHOCYTES % (AUTO) 11 % (22-44); MD NO; MEAN CORPUSCULAR HEMOGLOBIN 28.4 pg (27.5-34.5); MEAN CORPUSCULAR HGB CONC 32.1 g/dL (33.2-36.2); MEAN CORPUSCULAR VOLUME 88.3 fL (81-97); MEAN PLATELET VOLUME 7.6 fL (7.4-10.4); MONOCYTES # (AUTO) 0.65 x10^3/uL (0.2-0.8); MONOCYTES % (AUTO) 8 % (2-9); NEUTROPHILS # (AUTO) 6.91 x10^3/uL (1.8-6.8); NEUTROPHILS % (AUTO) 80 % (42-75); PLATELET COUNT 228 x10^3/uL (130-400); RED BLOOD COUNT 3.39 x10^6/uL (4.38-5.82); RED CELL DISTRIBUTION WIDTH 15.7 % (9.4-14.8)
[2018-08-13 05:05] LABS: ANION GAP 5 mmol/L (5-15); CALCIUM 8.1 mg/dL (8.5-10.1); CHLORIDE 110 mmol/L (98-107); CREATININE 0.63 mg/dL (0.7-1.3)
[2018-08-13] MEDS: MUPIROCIN OINT 2%, 22GM TP SCH ×2 (05:16→21:08)
[2018-08-13] MEDS: LINEZOLID PMX 600MG/300ML 300 ML IV SCH (05:16)
[2018-08-13] MEDS ORDERED: FENTANYL PF 100 MCG/2ML ONE (07:30)
[2018-08-13] MEDS ORDERED: MIDAZOLAM 1 MG/ML, 2ML ONE (07:31)
[2018-08-13] MEDS ORDERED: BUPIVACAINE/EPI 0.5% 1:200K ONE (07:41)
[2018-08-13] MEDS ORDERED: BUPIVACAINE/EPI 0.5% 1:200K INFIL ONE (08:21)
[2018-08-13] MEDS: LISINOPRIL 10 MG TABLET PO SCH (09:00)
[2018-08-13] MEDS: INSULIN GLARGINE 100 UNITS/ML, PEN SQ-INSULIN SCH ×2 (09:00→21:00)
[2018-08-13] MEDS ORDERED: PHENYLEPHRINE 10 MG/ML ONE (10:54)
[2018-08-13] MEDS ORDERED: ROCURONIUM 10MG/ML,5ML ONE (10:54)
[2018-08-13] MEDS ORDERED: CALCIUM GLUCONATE 4.6 MEQ/10 ML IV ONE (11:30)
[2018-08-13] MEDS: ALBUMIN HUMAN 5% IV SCH (15:53)
[2018-08-13] MEDS: ENOXAPARIN 40 MG/0.4 ML SQ SCH (19:30)
[2018-08-14] MEDS: ALBUTEROL/IPRATROPIUM 2.5MG/0.5MG, 3 ML INLINE SCH ×6 (02:33→23:00)
[2018-08-14] MEDS: PIPERACILLIN/TAZO/PMX 4.5GM 100 ML IV SCH ×4 (03:57→22:34)
[2018-08-14] MEDS: INSULIN LISPRO 100 UNITS/ML, PEN SQ-INSULIN SCH ×4 (04:01→21:00)
[2018-08-14 04:29] LABS: BASOPHILS # (AUTO) 0.03 x10^3/uL (0-0.1); BASOPHILS % (AUTO) 0 % (0-1); EOSINOPHILS # (AUTO) 0.15 x10^3/uL (0-0.4); EOSINOPHILS % (AUTO) 1 % (1-7); LYMPHOCYTES # (AUTO) 1.13 x10^3/uL (1-3.4); LYMPHOCYTES % (AUTO) 8 % (22-44); MD NO; MEAN CORPUSCULAR HEMOGLOBIN 28.6 pg (27.5-34.5); MEAN CORPUSCULAR HGB CONC 32.4 g/dL (33.2-36.2); MEAN CORPUSCULAR VOLUME 88.2 fL (81-97); MEAN PLATELET VOLUME 7.4 fL (7.4-10.4); MONOCYTES # (AUTO) 0.77 x10^3/uL (0.2-0.8); MONOCYTES % (AUTO) 6 % (2-9); NEUTROPHILS # (AUTO) 11.69 x10^3/uL (1.8-6.8); NEUTROPHILS % (AUTO) 85 % (42-75); PLATELET COUNT 284 x10^3/uL (130-400); RED BLOOD COUNT 3.72 x10^6/uL (4.38-5.82)
[2018-08-14 04:38] LABS: ANION GAP 8 mmol/L (5-15); CALCIUM 8.4 mg/dL (8.5-10.1); CHLORIDE 111 mmol/L (98-107)
[2018-08-14 04:40] LABS: CREATININE 0.59 mg/dL (0.7-1.3); TRIGLYCERIDES 147 mg/dL (50-200)
[2018-08-14] MEDS: FENTANYL PF 100 MCG/2ML IVPush PRN (05:35)
[2018-08-14] MEDS: MUPIROCIN OINT 2%, 22GM TP SCH ×2 (05:35→17:38)
[2018-08-14] MEDS ORDERED: MAGNESIUM SULFATE PMX 4GM/100M 100 ML IVPB ONE (09:00)
[2018-08-14] MEDS: METOCLOPRAMIDE 5 MG/ML, 2ML IV SCH ×3 (09:00→21:00)
[2018-08-14] MEDS: INSULIN GLARGINE 100 UNITS/ML, PEN SQ-INSULIN SCH ×2 (09:00→21:00)
[2018-08-14] MEDS ORDERED: POTASSIUM CHLORIDE 20 MEQ PACKET PO ONE (09:00)
[2018-08-14] MEDS: LISINOPRIL 10 MG TABLET PO SCH (09:52)
[2018-08-14] MEDS: NS + 20MEQ KCL 1,000 ML IV SCH (09:52)
[2018-08-14] MEDS: POTASSIUM CHLORIDE 40 MEQ in SODIUM CHLORIDE 0.9% 100 ML IV SCH ×2 (09:53→14:22)
[2018-08-14] MEDS: SODIUM BICARBONATE 4.0%, 5ML NPPB SCH ×3 (14:36→22:52)
[2018-08-14] MEDS: ENOXAPARIN 40 MG/0.4 ML SQ SCH (19:30)
[2018-08-15] MEDS: NS + 20MEQ KCL 1,000 ML IV SCH (00:53)
[2018-08-15] MEDS: METOCLOPRAMIDE 5 MG/ML, 2ML IV SCH (03:00)
[2018-08-15] MEDS: INSULIN LISPRO 100 UNITS/ML, PEN SQ-INSULIN SCH ×4 (03:00→20:27)
[2018-08-15] MEDS: ALBUTEROL/IPRATROPIUM 2.5MG/0.5MG, 3 ML INLINE SCH ×6 (03:00→22:21)
[2018-08-15] MEDS: SODIUM BICARBONATE 4.0%, 5ML NPPB SCH ×6 (03:30→22:20)
[2018-08-15] MEDS: PIPERACILLIN/TAZO/PMX 4.5GM 100 ML IV SCH ×4 (04:35→22:05)
[2018-08-15] MEDS: MUPIROCIN OINT 2%, 22GM TP SCH ×2 (04:36→17:13)
[2018-08-15 04:49] LABS: BASOPHILS # (AUTO) 0.04 x10^3/uL (0-0.1); BASOPHILS % (AUTO) 0 % (0-1); EOSINOPHILS # (AUTO) 0.12 x10^3/uL (0-0.4); EOSINOPHILS % (AUTO) 1 % (1-7); LYMPHOCYTES # (AUTO) 0.94 x10^3/uL (1-3.4); LYMPHOCYTES % (AUTO) 10 % (22-44); MD NO; MEAN CORPUSCULAR HEMOGLOBIN 28.9 pg (27.5-34.5); MEAN CORPUSCULAR HGB CONC 32.8 g/dL (33.2-36.2); MEAN CORPUSCULAR VOLUME 87.9 fL (81-97); MEAN PLATELET VOLUME 6.7 fL (7.4-10.4); MONOCYTES # (AUTO) 0.75 x10^3/uL (0.2-0.8); MONOCYTES % (AUTO) 8 % (2-9); NEUTROPHILS # (AUTO) 7.76 x10^3/uL (1.8-6.8); NEUTROPHILS % (AUTO) 81 % (42-75); PLATELET COUNT 296 x10^3/uL (130-400); RED BLOOD COUNT 3.52 x10^6/uL (4.38-5.82); RED CELL DISTRIBUTION WIDTH 16.6 % (9.4-14.8)
[2018-08-15 05:08] LABS: ANION GAP 7 mmol/L (5-15); CHLORIDE 111 mmol/L (98-107); CREATININE 0.54 mg/dL (0.7-1.3)
[2018-08-15] MEDS ORDERED: VECURONIUM 10 MG ONE (09:01)
[2018-08-15] MEDS ORDERED: PROPOFOL 100 ML IV ONE (09:02)
[2018-08-15] MEDS: LISINOPRIL 10 MG TABLET PO SCH (09:09)
[2018-08-15] MEDS: POTASSIUM CHLORIDE 20 MEQ in SODIUM CHLORIDE 0.45% 1,000 ML IV SCH ×2 (09:10→20:39)
[2018-08-15] MEDS ORDERED: ALBUMIN HUMAN 5% IV ONE (10:30)
[2018-08-15] MEDS ORDERED: CALCIUM GLUCONATE 4.6 MEQ/10 ML IV ONE (10:30)
[2018-08-15] MEDS: FENTANYL PF 100 MCG/2ML IVPush PRN (10:33)
[2018-08-15] MEDS: ARTIFICIAL TEARS OINT 3.5 GM EACHEYE PRN (10:35)
[2018-08-15] MEDS ORDERED: MIDAZOLAM 1 MG/ML, 5ML ONE (10:36)
[2018-08-15] MEDS ORDERED: MIDAZOLAM 1 MG/ML, 2ML IVPush ONE (11:00)
[2018-08-15] MEDS ORDERED: VECURONIUM 10 MG IVPush ONE (11:00)
[2018-08-15] MEDS ORDERED: MIDAZOLAM 1 MG/ML, 5ML IVPush ONE (11:00)
[2018-08-15] MEDS: ENOXAPARIN 40 MG/0.4 ML SQ SCH (20:25)
[2018-08-16] MEDS: FENTANYL PF 100 MCG/2ML IVPush PRN (01:13)
[2018-08-16] MEDS: ALBUTEROL/IPRATROPIUM 2.5MG/0.5MG, 3 ML INLINE SCH ×6 (01:57→22:14)
[2018-08-16] MEDS: SODIUM BICARBONATE 4.0%, 5ML NPPB SCH ×6 (01:58→22:14)
[2018-08-16] MEDS: INSULIN LISPRO 100 UNITS/ML, PEN SQ-INSULIN SCH ×4 (03:58→21:15)
[2018-08-16] MEDS: PIPERACILLIN/TAZO/PMX 4.5GM 100 ML IV SCH (03:58)
[2018-08-16 04:26] LABS: BASOPHILS # (AUTO) 0.04 x10^3/uL (0-0.1); BASOPHILS % (AUTO) 1 % (0-1); EOSINOPHILS # (AUTO) 0.19 x10^3/uL (0-0.4); EOSINOPHILS % (AUTO) 2 % (1-7); LYMPHOCYTES # (AUTO) 1.07 x10^3/uL (1-3.4); LYMPHOCYTES % (AUTO) 13 % (22-44); MD NO; MEAN CORPUSCULAR HEMOGLOBIN 28.2 pg (27.5-34.5); MEAN CORPUSCULAR HGB CONC 31.7 g/dL (33.2-36.2); MEAN CORPUSCULAR VOLUME 88.9 fL (81-97); MEAN PLATELET VOLUME 7.2 fL (7.4-10.4); MONOCYTES # (AUTO) 0.56 x10^3/uL (0.2-0.8); MONOCYTES % (AUTO) 7 % (2-9); NEUTROPHILS # (AUTO) 6.49 x10^3/uL (1.8-6.8); NEUTROPHILS % (AUTO) 78 % (42-75); PLATELET COUNT 273 x10^3/uL (130-400); RED BLOOD COUNT 3.36 x10^6/uL (4.38-5.82); RED CELL DISTRIBUTION WIDTH 16.9 % (9.4-14.8)
[2018-08-16 04:36] LABS: ANION GAP 5 mmol/L (5-15); CALCIUM 8.2 mg/dL (8.5-10.1); CHLORIDE 113 mmol/L (98-107); CREATININE 0.62 mg/dL (0.7-1.3)
[2018-08-16] MEDS: MUPIROCIN OINT 2%, 22GM TP SCH ×2 (05:26→17:09)
[2018-08-16] MEDS: LISINOPRIL 10 MG TABLET PO SCH (08:45)
[2018-08-16] MEDS: POTASSIUM CHLORIDE 20 MEQ in SODIUM CHLORIDE 0.45% 1,000 ML IV SCH (12:26)
[2018-08-16] MEDS: ENOXAPARIN 40 MG/0.4 ML SQ SCH (19:42)
[2018-08-17] MEDS: FENTANYL PF 100 MCG/2ML IVPush PRN ×2 (00:20→22:41)
[2018-08-17] MEDS: SODIUM BICARBONATE 4.0%, 5ML NPPB SCH ×6 (01:26→23:30)
[2018-08-17] MEDS: ALBUTEROL/IPRATROPIUM 2.5MG/0.5MG, 3 ML INLINE SCH ×6 (01:26→22:30)
[2018-08-17] MEDS: POTASSIUM CHLORIDE 20 MEQ in SODIUM CHLORIDE 0.45% 1,000 ML IV SCH ×2 (01:33→16:06)
[2018-08-17] MEDS: INSULIN LISPRO 100 UNITS/ML, PEN SQ-INSULIN SCH ×4 (03:48→21:06)
[2018-08-17] MEDS: MUPIROCIN OINT 2%, 22GM TP SCH (03:49)
[2018-08-17 04:01] LABS: BASOPHILS # (AUTO) 0.06 x10^3/uL (0-0.1); BASOPHILS % (AUTO) 1 % (0-1); EOSINOPHILS # (AUTO) 0.23 x10^3/uL (0-0.4); EOSINOPHILS % (AUTO) 3 % (1-7); LYMPHOCYTES # (AUTO) 1.28 x10^3/uL (1-3.4); LYMPHOCYTES % (AUTO) 18 % (22-44); MD NO; MEAN CORPUSCULAR HEMOGLOBIN 27.7 pg (27.5-34.5); MEAN CORPUSCULAR HGB CONC 31.2 g/dL (33.2-36.2); MEAN CORPUSCULAR VOLUME 88.7 fL (81-97); MEAN PLATELET VOLUME 7.2 fL (7.4-10.4); MONOCYTES # (AUTO) 0.67 x10^3/uL (0.2-0.8); MONOCYTES % (AUTO) 9 % (2-9); NEUTROPHILS # (AUTO) 5.11 x10^3/uL (1.8-6.8); NEUTROPHILS % (AUTO) 70 % (42-75); PLATELET COUNT 293 x10^3/uL (130-400); RED BLOOD COUNT 3.28 x10^6/uL (4.38-5.82); RED CELL DISTRIBUTION WIDTH 16.9 % (9.4-14.8)
[2018-08-17 04:11] LABS: ANION GAP 3 mmol/L (5-15); CALCIUM 8.2 mg/dL (8.5-10.1); CHLORIDE 109 mmol/L (98-107); CREATININE 0.63 mg/dL (0.7-1.3); TRIGLYCERIDES 189 mg/dL (50-200)
[2018-08-17] MEDS ORDERED: CALCIUM GLUCONATE 4.6 MEQ/10 ML IV ONE (08:00)
[2018-08-17] MEDS: LISINOPRIL 10 MG TABLET PO SCH (08:39)
[2018-08-17] MEDS: INSULIN GLARGINE 100 UNITS/ML, PEN SQ-INSULIN SCH ×2 (08:40→21:06)
[2018-08-17] MEDS: ARTIFICIAL TEARS OINT 3.5 GM EACHEYE PRN (08:47)
[2018-08-17] MEDS: ALBUMIN HUMAN 5% IV SCH (09:48)
[2018-08-17] MEDS: ENOXAPARIN 40 MG/0.4 ML SQ SCH (19:37)
[2018-08-18] MEDS: ALBUTEROL/IPRATROPIUM 2.5MG/0.5MG, 3 ML INLINE SCH ×6 (02:30→22:16)
[2018-08-18] MEDS: SODIUM BICARBONATE 4.0%, 5ML NPPB SCH (02:30)
[2018-08-18] MEDS: INSULIN LISPRO 100 UNITS/ML, PEN SQ-INSULIN SCH ×4 (04:22→21:05)
[2018-08-18 04:39] LABS: BASOPHILS # (AUTO) 0.04 x10^3/uL (0-0.1); BASOPHILS % (AUTO) 1 % (0-1); EOSINOPHILS # (AUTO) 0.26 x10^3/uL (0-0.4); EOSINOPHILS % (AUTO) 3 % (1-7); LYMPHOCYTES # (AUTO) 1.46 x10^3/uL (1-3.4); LYMPHOCYTES % (AUTO) 19 % (22-44); MD NO; MEAN CORPUSCULAR HEMOGLOBIN 28.6 pg (27.5-34.5); MEAN CORPUSCULAR HGB CONC 32.5 g/dL (33.2-36.2); MEAN CORPUSCULAR VOLUME 88.2 fL (81-97); MEAN PLATELET VOLUME 7.6 fL (7.4-10.4); MONOCYTES # (AUTO) 0.59 x10^3/uL (0.2-0.8); MONOCYTES % (AUTO) 8 % (2-9); NEUTROPHILS # (AUTO) 5.51 x10^3/uL (1.8-6.8); NEUTROPHILS % (AUTO) 70 % (42-75); PLATELET COUNT 263 x10^3/uL (130-400); RED BLOOD COUNT 3.16 x10^6/uL (4.38-5.82); RED CELL DISTRIBUTION WIDTH 16.9 % (9.4-14.8)
[2018-08-18 05:11] LABS: ANION GAP 6 mmol/L (5-15); CALCIUM 8.1 mg/dL (8.5-10.1); CHLORIDE 106 mmol/L (98-107); CREATININE 0.55 mg/dL (0.7-1.3)
[2018-08-18] MEDS: POTASSIUM CHLORIDE 20 MEQ in SODIUM CHLORIDE 0.45% 1,000 ML IV SCH ×2 (05:58→16:56)
[2018-08-18] MEDS ORDERED: MAGNESIUM SULFATE PMX 2GM/50ML 50 ML IV ONE (07:00)
[2018-08-18] MEDS: LISINOPRIL 10 MG TABLET PO SCH (09:39)
[2018-08-18] MEDS: INSULIN GLARGINE 100 UNITS/ML, PEN SQ-INSULIN SCH (09:41)
[2018-08-18] MEDS: ENOXAPARIN 40 MG/0.4 ML SQ SCH (19:39)
[2018-08-18] MEDS ORDERED: INSULIN GLARGINE 100 UNITS/ML, PEN SQ-INSULIN SCH (21:00)
[2018-08-19] MEDS: ALBUTEROL/IPRATROPIUM 2.5MG/0.5MG, 3 ML INLINE SCH ×6 (02:16→22:02)
[2018-08-19] MEDS: INSULIN LISPRO 100 UNITS/ML, PEN SQ-INSULIN SCH ×4 (03:00→21:19)
[2018-08-19 03:38] LABS: ANION GAP 5 mmol/L (5-15); CALCIUM 8.4 mg/dL (8.5-10.1); CHLORIDE 101 mmol/L (98-107); CREATININE 0.57 mg/dL (0.7-1.3)
[2018-08-19 03:46] LABS: BASOPHILS # (AUTO) 0.03 x10^3/uL (0-0.1); BASOPHILS % (AUTO) 0 % (0-1); EOSINOPHILS % (AUTO) 2 % (1-7); LYMPHOCYTES # (AUTO) 1.67 x10^3/uL (1-3.4); LYMPHOCYTES % (AUTO) 17 % (22-44); MD NO; MEAN CORPUSCULAR HEMOGLOBIN 28.2 pg (27.5-34.5); MEAN CORPUSCULAR HGB CONC 32.4 g/dL (33.2-36.2); MEAN CORPUSCULAR VOLUME 87.1 fL (81-97); MEAN PLATELET VOLUME 7.7 fL (7.4-10.4); MONOCYTES # (AUTO) 0.65 x10^3/uL (0.2-0.8); MONOCYTES % (AUTO) 7 % (2-9); NEUTROPHILS # (AUTO) 7.09 x10^3/uL (1.8-6.8); NEUTROPHILS % (AUTO) 74 % (42-75); PLATELET COUNT 333 x10^3/uL (130-400); RED CELL DISTRIBUTION WIDTH 17.3 % (9.4-14.8)
[2018-08-19 03:47] LABS: INTERNATIONAL NORMALIZED RATIO 0.99 (0.93-1.1); PROTHROMBIN TIME 10.4 Seconds (9.6-11.5)
[2018-08-19] MEDS: FENTANYL PF 100 MCG/2ML IVPush PRN (05:19)
[2018-08-19] MEDS ORDERED: CALCIUM GLUCONATE 4.6 MEQ/10 ML IV ONE (08:30)
[2018-08-19] MEDS: LISINOPRIL 10 MG TABLET PO SCH ×2 (09:00→10:11)
[2018-08-19] MEDS: INSULIN GLARGINE 100 UNITS/ML, PEN SQ-INSULIN SCH ×2 (10:19→21:20)
[2018-08-19] MEDS: ALBUMIN HUMAN 5% IV SCH (10:55)
[2018-08-19] MEDS: ENOXAPARIN 40 MG/0.4 ML SQ SCH (21:23)
[2018-08-20] MEDS: ALBUTEROL/IPRATROPIUM 2.5MG/0.5MG, 3 ML INLINE SCH ×6 (02:19→22:57)
[2018-08-20] MEDS: INSULIN LISPRO 100 UNITS/ML, PEN SQ-INSULIN SCH ×4 (04:15→20:55)
[2018-08-20 04:48] LABS: BASOPHILS # (AUTO) 0.03 x10^3/uL (0-0.1); BASOPHILS % (AUTO) 0 % (0-1); EOSINOPHILS # (AUTO) 0.31 x10^3/uL (0-0.4); EOSINOPHILS % (AUTO) 3 % (1-7); LYMPHOCYTES # (AUTO) 2.76 x10^3/uL (1-3.4); LYMPHOCYTES % (AUTO) 22 % (22-44); MD NO; MEAN CORPUSCULAR HEMOGLOBIN 28.9 pg (27.5-34.5); MEAN CORPUSCULAR HGB CONC 32.4 g/dL (33.2-36.2); MEAN CORPUSCULAR VOLUME 89.2 fL (81-97); MEAN PLATELET VOLUME 7.8 fL (7.4-10.4); MONOCYTES # (AUTO) 0.86 x10^3/uL (0.2-0.8); MONOCYTES % (AUTO) 7 % (2-9); NEUTROPHILS % (AUTO) 68 % (42-75); PLATELET COUNT 389 x10^3/uL (130-400); RED CELL DISTRIBUTION WIDTH 17.6 % (9.4-14.8)
[2018-08-20 04:57] LABS: ANION GAP 5 mmol/L (5-15); CALCIUM 8.8 mg/dL (8.5-10.1); CHLORIDE 106 mmol/L (98-107); CREATININE 0.59 mg/dL (0.7-1.3); TRIGLYCERIDES 153 mg/dL (50-200)
[2018-08-20] MEDS: PIPERACILLIN/TAZO/PMX 3.375GM 50 ML IV SCH ×3 (07:43→18:36)
[2018-08-20] MEDS: LISINOPRIL 10 MG TABLET PO SCH (09:00)
[2018-08-20] MEDS: INSULIN GLARGINE 100 UNITS/ML, PEN SQ-INSULIN SCH ×2 (09:25→21:00)
[2018-08-20] MEDS: ENOXAPARIN 40 MG/0.4 ML SQ SCH (19:36)
[2018-08-21] MEDS: PIPERACILLIN/TAZO/PMX 3.375GM 50 ML IV SCH ×4 (00:51→19:50)
[2018-08-21] MEDS: ALBUTEROL/IPRATROPIUM 2.5MG/0.5MG, 3 ML INLINE SCH ×6 (03:00→22:15)
[2018-08-21] MEDS: INSULIN LISPRO 100 UNITS/ML, PEN SQ-INSULIN SCH ×4 (03:10→23:00)
[2018-08-21 03:16] LABS: BASOPHILS # (AUTO) 0.07 x10^3/uL (0-0.1); BASOPHILS % (AUTO) 1 % (0-1); EOSINOPHILS % (AUTO) 4 % (1-7); LYMPHOCYTES # (AUTO) 1.86 x10^3/uL (1-3.4); LYMPHOCYTES % (AUTO) 18 % (22-44); MD NO; MEAN CORPUSCULAR HGB CONC 32.5 g/dL (33.2-36.2); MEAN CORPUSCULAR VOLUME 89.3 fL (81-97); MEAN PLATELET VOLUME 7.2 fL (7.4-10.4); MONOCYTES # (AUTO) 0.71 x10^3/uL (0.2-0.8); MONOCYTES % (AUTO) 7 % (2-9); NEUTROPHILS # (AUTO) 7.45 x10^3/uL (1.8-6.8); NEUTROPHILS % (AUTO) 71 % (42-75); PLATELET COUNT 441 x10^3/uL (130-400); RED BLOOD COUNT 3.34 x10^6/uL (4.38-5.82); RED CELL DISTRIBUTION WIDTH 18.5 % (9.4-14.8)
[2018-08-21 03:25] LABS: ALBUMIN 3.4 g/dL (3.4-5.0); ANION GAP 5 mmol/L (5-15); CALCIUM 8.8 mg/dL (8.5-10.1); CHLORIDE 105 mmol/L (98-107); CREATININE 0.66 mg/dL (0.7-1.3)
[2018-08-21] MEDS ORDERED: CALCIUM GLUCONATE 4.6 MEQ/10 ML IV ONE (08:30)
[2018-08-21] MEDS: INSULIN GLARGINE 100 UNITS/ML, PEN SQ-INSULIN SCH ×2 (09:00→19:40)
[2018-08-21] MEDS: ALBUMIN HUMAN 5% IV SCH (09:22)
[2018-08-21] MEDS: LISINOPRIL 10 MG TABLET PO SCH (11:42)
[2018-08-21] MEDS: SODIUM CHLORIDE 0.45% 1,000 ML IV SCH (11:43)
[2018-08-21] MEDS: ENOXAPARIN 40 MG/0.4 ML SQ SCH (19:50)
[2018-08-22] MEDS: FENTANYL PF 100 MCG/2ML IVPush PRN (01:46)
[2018-08-22] MEDS: SODIUM CHLORIDE 0.45% 1,000 ML IV SCH ×2 (01:47→14:40)
[2018-08-22] MEDS: PIPERACILLIN/TAZO/PMX 3.375GM 50 ML IV SCH ×4 (01:50→20:37)
[2018-08-22] MEDS: ALBUTEROL/IPRATROPIUM 2.5MG/0.5MG, 3 ML INLINE SCH ×6 (02:12→22:29)
[2018-08-22] MEDS: INSULIN LISPRO 100 UNITS/ML, PEN SQ-INSULIN SCH ×4 (04:54→23:00)
[2018-08-22 05:06] LABS: BASOPHILS # (AUTO) 0.04 x10^3/uL (0-0.1); BASOPHILS % (AUTO) 1 % (0-1); EOSINOPHILS % (AUTO) 5 % (1-7); LYMPHOCYTES # (AUTO) 1.53 x10^3/uL (1-3.4); LYMPHOCYTES % (AUTO) 20 % (22-44); MD NO; MEAN CORPUSCULAR HEMOGLOBIN 29.3 pg (27.5-34.5); MEAN CORPUSCULAR HGB CONC 32.4 g/dL (33.2-36.2); MEAN CORPUSCULAR VOLUME 90.2 fL (81-97); MEAN PLATELET VOLUME 7.4 fL (7.4-10.4); MONOCYTES # (AUTO) 0.57 x10^3/uL (0.2-0.8); MONOCYTES % (AUTO) 8 % (2-9); NEUTROPHILS # (AUTO) 5.06 x10^3/uL (1.8-6.8); NEUTROPHILS % (AUTO) 67 % (42-75); PLATELET COUNT 434 x10^3/uL (130-400); RED BLOOD COUNT 3.18 x10^6/uL (4.38-5.82); RED CELL DISTRIBUTION WIDTH 18.6 % (9.4-14.8)
[2018-08-22 05:27] LABS: ANION GAP 5 mmol/L (5-15); CALCIUM 8.6 mg/dL (8.5-10.1); CHLORIDE 109 mmol/L (98-107)
[2018-08-22 05:28] LABS: CREATININE 0.51 mg/dL (0.7-1.3)
[2018-08-22] MEDS ORDERED: METOCLOPRAMIDE 5 MG/ML, 2ML ONE (08:26)
[2018-08-22] MEDS: LISINOPRIL 10 MG TABLET PO SCH (08:29)
[2018-08-22] MEDS: INSULIN GLARGINE 100 UNITS/ML, PEN SQ-INSULIN SCH ×2 (08:29→20:37)
[2018-08-22] MEDS: METOCLOPRAMIDE 5 MG/ML, 2ML IVPush SCH ×3 (08:29→20:37)
[2018-08-22] MEDS: ENOXAPARIN 40 MG/0.4 ML SQ SCH (20:37)
[2018-08-23] MEDS: ALBUTEROL/IPRATROPIUM 2.5MG/0.5MG, 3 ML INLINE SCH ×6 (02:24→22:17)
[2018-08-23] MEDS: PIPERACILLIN/TAZO/PMX 3.375GM 50 ML IV SCH ×4 (02:45→20:37)
[2018-08-23] MEDS: METOCLOPRAMIDE 5 MG/ML, 2ML IVPush SCH ×4 (02:45→20:37)
[2018-08-23 04:15] LABS: ANION GAP 7 mmol/L (5-15); BASOPHILS # (AUTO) 0.04 x10^3/uL (0-0.1); BASOPHILS % (AUTO) 1 % (0-1); CALCIUM 8.5 mg/dL (8.5-10.1); CHLORIDE 107 mmol/L (98-107); EOSINOPHILS # (AUTO) 0.24 x10^3/uL (0-0.4); EOSINOPHILS % (AUTO) 3 % (1-7); LYMPHOCYTES # (AUTO) 1.66 x10^3/uL (1-3.4); LYMPHOCYTES % (AUTO) 23 % (22-44); MD NO; MEAN CORPUSCULAR HEMOGLOBIN 29.2 pg (27.5-34.5); MEAN CORPUSCULAR HGB CONC 32.6 g/dL (33.2-36.2); MEAN CORPUSCULAR VOLUME 89.8 fL (81-97); MEAN PLATELET VOLUME 7.1 fL (7.4-10.4); MONOCYTES % (AUTO) 8 % (2-9); NEUTROPHILS # (AUTO) 4.69 x10^3/uL (1.8-6.8); NEUTROPHILS % (AUTO) 65 % (42-75); PLATELET COUNT 470 x10^3/uL (130-400); RED BLOOD COUNT 3.21 x10^6/uL (4.38-5.82); RED CELL DISTRIBUTION WIDTH 18.5 % (9.4-14.8)
[2018-08-23 04:16] LABS: CREATININE 0.48 mg/dL (0.7-1.3)
[2018-08-23 04:17] LABS: TRIGLYCERIDES 145 mg/dL (50-200)
[2018-08-23] MEDS: INSULIN LISPRO 100 UNITS/ML, PEN SQ-INSULIN SCH ×4 (05:00→23:39)
[2018-08-23] MEDS: SODIUM CHLORIDE 0.45% 1,000 ML IV SCH ×2 (07:40→22:40)
[2018-08-23] MEDS: INSULIN GLARGINE 100 UNITS/ML, PEN SQ-INSULIN SCH ×2 (09:00→20:37)
[2018-08-23] MEDS: LISINOPRIL 10 MG TABLET PO SCH (11:30)
[2018-08-23] MEDS: ENOXAPARIN 40 MG/0.4 ML SQ SCH (20:36)
[2018-08-24] MEDS: ALBUTEROL/IPRATROPIUM 2.5MG/0.5MG, 3 ML INLINE SCH ×6 (02:31→22:15)
[2018-08-24] MEDS: METOCLOPRAMIDE 5 MG/ML, 2ML IVPush SCH ×4 (02:41→20:42)
[2018-08-24 03:51] LABS: BASOPHILS # (AUTO) 0.06 x10^3/uL (0-0.1); BASOPHILS % (AUTO) 1 % (0-1); EOSINOPHILS # (AUTO) 0.25 x10^3/uL (0-0.4); EOSINOPHILS % (AUTO) 3 % (1-7); LYMPHOCYTES # (AUTO) 2.17 x10^3/uL (1-3.4); LYMPHOCYTES % (AUTO) 30 % (22-44); MD NO; MEAN CORPUSCULAR HEMOGLOBIN 29.3 pg (27.5-34.5); MEAN CORPUSCULAR HGB CONC 32.5 g/dL (33.2-36.2); MEAN CORPUSCULAR VOLUME 90.1 fL (81-97); MONOCYTES # (AUTO) 0.77 x10^3/uL (0.2-0.8); MONOCYTES % (AUTO) 10 % (2-9); NEUTROPHILS # (AUTO) 4.11 x10^3/uL (1.8-6.8); NEUTROPHILS % (AUTO) 56 % (42-75); PLATELET COUNT 538 x10^3/uL (130-400); RED CELL DISTRIBUTION WIDTH 18.5 % (9.4-14.8)
[2018-08-24 04:01] LABS: ANION GAP 9 mmol/L (5-15); CALCIUM 8.6 mg/dL (8.5-10.1); CHLORIDE 103 mmol/L (98-107); CREATININE 0.55 mg/dL (0.7-1.3)
[2018-08-24] MEDS: INSULIN LISPRO 100 UNITS/ML, PEN SQ-INSULIN SCH ×4 (05:02→23:43)
[2018-08-24] MEDS: INSULIN GLARGINE 100 UNITS/ML, PEN SQ-INSULIN SCH ×2 (07:39→20:43)
[2018-08-24] MEDS ORDERED: TPN PER PHARMACY MC PRN (09:00)
[2018-08-24] MEDS: LISINOPRIL 10 MG TABLET PO SCH (09:06)
[2018-08-24] MEDS ORDERED: FILTER, DISP 1.2 MICRON FOR TPN/PVN IV PRN (11:00)
[2018-08-24] MEDS: SODIUM CHLORIDE 0.45% 1,000 ML IV SCH (14:00)
[2018-08-24] MEDS ORDERED: [UNRECOGNIZED DRUG - OTHER] IV SCH (17:00)
[2018-08-24] MEDS ORDERED: FAT EMUL IV SCH (17:00)
[2018-08-24] MEDS ORDERED: DEXTROSE 50%, 50ML SYRINGE IVPush PRN (17:00)
[2018-08-24] MEDS ORDERED: SMOF TPN IV SCH (17:00)
[2018-08-24] MEDS ORDERED: DEXTROSE 70% IV SCH (17:00)
[2018-08-24] MEDS ORDERED: AMINO ACID 10% IV SCH (17:00)
[2018-08-24] MEDS ORDERED: DEXTROSE 10% 500 ML IV PRN (17:00)
[2018-08-24] MEDS ORDERED: MAGNESIUM SULFATE PMX 2GM/50ML 50 ML IV ONE (18:30)
[2018-08-24] MEDS ORDERED: SODIUM CHLORIDE 0.45% 1,000 ML IV SCH (20:30)
[2018-08-24] MEDS: ENOXAPARIN 40 MG/0.4 ML SQ SCH (20:41)
[2018-08-25] MEDS: ALBUTEROL/IPRATROPIUM 2.5MG/0.5MG, 3 ML INLINE SCH ×6 (01:33→22:40)
[2018-08-25] MEDS: METOCLOPRAMIDE 5 MG/ML, 2ML IVPush SCH ×4 (02:30→22:57)
[2018-08-25] MEDS: INSULIN LISPRO 100 UNITS/ML, PEN SQ-INSULIN SCH ×4 (04:26→12:41)
[2018-08-25 05:09] LABS: MEAN CORPUSCULAR HEMOGLOBIN 28.6 pg (27.5-34.5); MEAN CORPUSCULAR HGB CONC 32.3 g/dL (33.2-36.2); MEAN CORPUSCULAR VOLUME 88.7 fL (81-97); MEAN PLATELET VOLUME 7.1 fL (7.4-10.4); PLATELET COUNT 500 x10^3/uL (130-400); RED BLOOD COUNT 3.09 x10^6/uL (4.38-5.82); RED CELL DISTRIBUTION WIDTH 18.1 % (9.4-14.8)
[2018-08-25 05:24] LABS: ANION GAP 6 mmol/L (5-15); CALCIUM 8.6 mg/dL (8.5-10.1); CHLORIDE 104 mmol/L (98-107); CREATININE 0.44 mg/dL (0.7-1.3)
[2018-08-25 05:28] LABS: PREALBUMIN 14.9 mg/dL (20.0-40.0)
[2018-08-25 05:38] LABS: BASOPHILS # (AUTO) 0.04 x10^3/uL (0-0.1); BASOPHILS % (AUTO) 1 % (0-1); EOSINOPHILS # (AUTO) 0.21 x10^3/uL (0-0.4); EOSINOPHILS % (AUTO) 3 % (1-7); LYMPHOCYTES # (AUTO) 1.66 x10^3/uL (1-3.4); LYMPHOCYTES % (AUTO) 22 % (22-44); MD SCAN; MONOCYTES % (AUTO) 9 % (2-9); NEUTROPHILS # (AUTO) 4.92 x10^3/uL (1.8-6.8); NEUTROPHILS % (AUTO) 65 % (42-75)
[2018-08-25] MEDS ORDERED: SODIUM CHLORIDE 0.45% 1,000 ML IV SCH (09:00)
[2018-08-25] MEDS: INSULIN GLARGINE 100 UNITS/ML, PEN SQ-INSULIN SCH ×2 (09:35→21:11)
[2018-08-25] MEDS: LISINOPRIL 10 MG TABLET PO SCH (09:35)
[2018-08-25] MEDS: INSULIN REGULAR HIGH DOSE Q6H X 48HRS SQ-INSULIN SCH ×3 (11:00→22:57)
[2018-08-25] MEDS ORDERED: CEFAZOLIN 2,000 MG in SODIUM CHLORIDE 0.9% 50 ML IVPB ONE (13:00)
[2018-08-25] MEDS ORDERED: CEFAZOLIN 1,000 MG IM ONE (13:00)
[2018-08-25] MEDS ORDERED: MIDAZOLAM 1 MG/ML, 5ML ONE (13:56)
[2018-08-25] MEDS ORDERED: ESOMEPRAZOLE 40 MG IV IVPush SCH (15:00)
[2018-08-25] MEDS: FILTER, DISP 1.2 MICRON FOR TPN/PVN IV PRN ×2 (16:24→17:22)
[2018-08-25] MEDS ORDERED: DEXTROSE 70% IV SCH (17:00)
[2018-08-25] MEDS ORDERED: AMINO ACID 10% IV SCH (17:00)
[2018-08-25] MEDS ORDERED: FAT EMUL IV SCH (17:00)
[2018-08-25] MEDS ORDERED: SMOF TPN IV SCH (17:00)
[2018-08-25] MEDS ORDERED: [UNRECOGNIZED DRUG - OTHER] IV SCH (17:00)
[2018-08-25] MEDS ORDERED: SODIUM CHLORIDE 0.9% 1,000ML IVBOLUS ONE (19:00)
[2018-08-25] MEDS: ENOXAPARIN 40 MG/0.4 ML SQ SCH (21:10)
[2018-08-26] MEDS: ALBUTEROL/IPRATROPIUM 2.5MG/0.5MG, 3 ML INLINE SCH ×6 (02:41→22:20)
[2018-08-26] MEDS: INSULIN LISPRO 100 UNITS/ML, PEN SQ-INSULIN SCH (05:00)
[2018-08-26] MEDS: METOCLOPRAMIDE 5 MG/ML, 2ML IVPush SCH ×4 (05:09→23:33)
[2018-08-26] MEDS: INSULIN REGULAR HIGH DOSE Q6H X 48HRS SQ-INSULIN SCH ×4 (05:10→23:37)
[2018-08-26 05:56] LABS: BASOPHILS # (AUTO) 0.03 x10^3/uL (0-0.1); BASOPHILS % (AUTO) 0 % (0-1); EOSINOPHILS # (AUTO) 0.23 x10^3/uL (0-0.4); EOSINOPHILS % (AUTO) 3 % (1-7); LYMPHOCYTES # (AUTO) 2.18 x10^3/uL (1-3.4); LYMPHOCYTES % (AUTO) 25 % (22-44); MD NO; MEAN CORPUSCULAR HGB CONC 33.4 g/dL (33.2-36.2); MEAN CORPUSCULAR VOLUME 89.9 fL (81-97); MEAN PLATELET VOLUME 7.7 fL (7.4-10.4); MONOCYTES # (AUTO) 0.86 x10^3/uL (0.2-0.8); MONOCYTES % (AUTO) 10 % (2-9); NEUTROPHILS # (AUTO) 5.36 x10^3/uL (1.8-6.8); NEUTROPHILS % (AUTO) 62 % (42-75); PLATELET COUNT 502 x10^3/uL (130-400); RED BLOOD COUNT 3.13 x10^6/uL (4.38-5.82); RED CELL DISTRIBUTION WIDTH 18.8 % (9.4-14.8)
[2018-08-26 06:04] LABS: ANION GAP 6 mmol/L (5-15); CALCIUM 8.7 mg/dL (8.5-10.1); CHLORIDE 105 mmol/L (98-107); CREATININE 0.52 mg/dL (0.7-1.3)
[2018-08-26 06:08] LABS: TRIGLYCERIDES 148 mg/dL (50-200)
[2018-08-26] MEDS: LISINOPRIL 10 MG TABLET PO SCH (09:00)
[2018-08-26] MEDS: INSULIN GLARGINE 100 UNITS/ML, PEN SQ-INSULIN SCH ×2 (11:21→20:31)
[2018-08-26] MEDS ORDERED: ONDANSETRON 2MG/ML, 2ML ONE (15:02)
[2018-08-26] MEDS ORDERED: ONDANSETRON 2MG/ML, 2ML IVPush PRN (15:30)
[2018-08-26] MEDS ORDERED: FAT EMUL IV SCH (17:00)
[2018-08-26] MEDS ORDERED: AMINO ACID 10% IV SCH (17:00)
[2018-08-26] MEDS ORDERED: [UNRECOGNIZED DRUG - OTHER] IV SCH (17:00)
[2018-08-26] MEDS ORDERED: DEXTROSE 70% IV SCH (17:00)
[2018-08-26] MEDS ORDERED: SMOF TPN IV SCH (17:00)
[2018-08-26] MEDS ORDERED: ALUMINUM/MAG/SIMETHICONE 30 ML UDC PO PRN (17:00)
[2018-08-26] MEDS ORDERED: FILTER, DISP 1.2 MICRON FOR TPN/PVN IV PRN (17:00)
[2018-08-26] MEDS: ENOXAPARIN 40 MG/0.4 ML SQ SCH (20:30)
[2018-08-27] MEDS: ALBUTEROL/IPRATROPIUM 2.5MG/0.5MG, 3 ML INLINE SCH ×6 (02:35→22:13)
[2018-08-27] MEDS: INSULIN REGULAR HIGH DOSE Q6H X 48HRS SQ-INSULIN SCH ×4 (04:39→23:23)
[2018-08-27 04:53] LABS: BASOPHILS # (AUTO) 0.04 x10^3/uL (0-0.1); BASOPHILS % (AUTO) 1 % (0-1); EOSINOPHILS % (AUTO) 3 % (1-7); LYMPHOCYTES # (AUTO) 1.98 x10^3/uL (1-3.4); LYMPHOCYTES % (AUTO) 25 % (22-44); MD NO; MEAN CORPUSCULAR HEMOGLOBIN 28.9 pg (27.5-34.5); MEAN CORPUSCULAR HGB CONC 32.3 g/dL (33.2-36.2); MEAN CORPUSCULAR VOLUME 89.4 fL (81-97); MONOCYTES # (AUTO) 0.83 x10^3/uL (0.2-0.8); MONOCYTES % (AUTO) 10 % (2-9); NEUTROPHILS # (AUTO) 5.02 x10^3/uL (1.8-6.8); NEUTROPHILS % (AUTO) 62 % (42-75); PLATELET COUNT 491 x10^3/uL (130-400)
[2018-08-27 05:01] LABS: ANION GAP 2 mmol/L (5-15); CALCIUM 8.5 mg/dL (8.5-10.1); CHLORIDE 105 mmol/L (98-107)
[2018-08-27 05:02] LABS: CREATININE 0.44 mg/dL (0.7-1.3)
[2018-08-27] MEDS: METOCLOPRAMIDE 5 MG/ML, 2ML IVPush SCH ×4 (05:05→23:16)
[2018-08-27] MEDS ORDERED: MAGNESIUM SULFATE PMX 2GM/50ML 50 ML IV ONE (07:00)
[2018-08-27] MEDS ORDERED: SODIUM PHOSPHATE 10 MMOL in SODIUM CHLORIDE 0.9% 500 ML IV ONE (07:00)
[2018-08-27] MEDS: LISINOPRIL 10 MG TABLET PO SCH (10:16)
[2018-08-27] MEDS: INSULIN GLARGINE 100 UNITS/ML, PEN SQ-INSULIN SCH ×2 (10:19→21:26)
[2018-08-27] MEDS: ARTIFICIAL TEARS OINT 3.5 GM EACHEYE PRN (11:16)
[2018-08-27] MEDS ORDERED: FAT EMUL IV SCH (17:00)
[2018-08-27] MEDS ORDERED: AMINO ACID 10% IV SCH (17:00)
[2018-08-27] MEDS ORDERED: FILTER, DISP 1.2 MICRON FOR TPN/PVN IV PRN (17:00)
[2018-08-27] MEDS ORDERED: SMOF TPN IV SCH (17:00)
[2018-08-27] MEDS ORDERED: DEXTROSE 70% IV SCH (17:00)
[2018-08-27] MEDS ORDERED: [UNRECOGNIZED DRUG - OTHER] IV SCH (17:00)
[2018-08-27] MEDS: ENOXAPARIN 40 MG/0.4 ML SQ SCH (20:40)
[2018-08-28] MEDS: ALBUTEROL/IPRATROPIUM 2.5MG/0.5MG, 3 ML INLINE SCH ×6 (02:16→22:20)
[2018-08-28 05:02] LABS: ANION GAP 5 mmol/L (5-15); CALCIUM 8.3 mg/dL (8.5-10.1); CHLORIDE 102 mmol/L (98-107); CREATININE 0.39 mg/dL (0.7-1.3)
[2018-08-28 05:05] LABS: BASOPHILS % (AUTO) 1 % (0-1); EOSINOPHILS # (AUTO) 0.18 x10^3/uL (0-0.4); EOSINOPHILS % (AUTO) 2 % (1-7); LYMPHOCYTES # (AUTO) 1.93 x10^3/uL (1-3.4); LYMPHOCYTES % (AUTO) 26 % (22-44); MD NO; MEAN CORPUSCULAR HEMOGLOBIN 29.8 pg (27.5-34.5); MEAN CORPUSCULAR VOLUME 90.3 fL (81-97); MEAN PLATELET VOLUME 7.3 fL (7.4-10.4); MONOCYTES # (AUTO) 0.72 x10^3/uL (0.2-0.8); MONOCYTES % (AUTO) 10 % (2-9); NEUTROPHILS # (AUTO) 4.49 x10^3/uL (1.8-6.8); NEUTROPHILS % (AUTO) 61 % (42-75); PLATELET COUNT 473 x10^3/uL (130-400); RED BLOOD COUNT 2.98 x10^6/uL (4.38-5.82)
[2018-08-28] MEDS: METOCLOPRAMIDE 5 MG/ML, 2ML IVPush SCH (06:08)
[2018-08-28] MEDS: INSULIN REGULAR HIGH DOSE Q6H X 48HRS SQ-INSULIN SCH ×4 (06:09→23:03)
[2018-08-28] MEDS: LISINOPRIL 10 MG TABLET PO SCH (09:52)
[2018-08-28] MEDS: INSULIN GLARGINE 100 UNITS/ML, PEN SQ-INSULIN SCH ×2 (09:55→20:54)
[2018-08-28] MEDS ORDERED: ERGOCALCIFEROL 50,000 UNIT CAPSULE PO SCH (15:00)
[2018-08-28] MEDS ORDERED: LISI-167 PO (15:18)
[2018-08-28] MEDS ORDERED: ENAL1.2513 IVPush (15:18)
[2018-08-28] MEDS ORDERED: MAG30ORA PO (15:18)
[2018-08-28] MEDS ORDERED: Tpn Per Pharmacy MC (15:18)
[2018-08-28] MEDS ORDERED: IPRA3AMP30 INLINE (15:18)
[2018-08-28] MEDS ORDERED: ERGO500017 PO (15:18)
[2018-08-28] MEDS ORDERED: INSU100I13 SQ-INSULIN (15:18)
[2018-08-28] MEDS ORDERED: BISA10SU13 PR (15:18)
[2018-08-28] MEDS ORDERED: LANO3.5O EACHEYE (15:18)
[2018-08-28] MEDS ORDERED: ENOX40SY4 SQ (15:18)
[2018-08-28] MEDS ORDERED: LIDO10VI34 ENDO (15:18)
[2018-08-28] MEDS ORDERED: ONDA4VIA60 IVPush (15:18)
[2018-08-28] MEDS ORDERED: INSU100V5 SQ-INSULIN (15:18)
[2018-08-28] MEDS ORDERED: AMINO ACID 10% IV SCH (17:00)
[2018-08-28] MEDS ORDERED: [UNRECOGNIZED DRUG - OTHER] IV SCH (17:00)
[2018-08-28] MEDS ORDERED: SMOF TPN IV SCH (17:00)
[2018-08-28] MEDS ORDERED: DEXTROSE 70% IV SCH (17:00)
[2018-08-28] MEDS ORDERED: FAT EMUL IV SCH (17:00)
[2018-08-28] MEDS ORDERED: FILTER, DISP 1.2 MICRON FOR TPN/PVN IV PRN (17:00)
[2018-08-28] MEDS: ENOXAPARIN 40 MG/0.4 ML SQ SCH (20:47)
[2018-08-29] MEDS: ALBUTEROL/IPRATROPIUM 2.5MG/0.5MG, 3 ML INLINE SCH ×3 (03:00→10:55)
[2018-08-29 03:43] LABS: BASOPHILS # (AUTO) 0.02 x10^3/uL (0-0.1); BASOPHILS % (AUTO) 0 % (0-1); EOSINOPHILS # (AUTO) 0.22 x10^3/uL (0-0.4); EOSINOPHILS % (AUTO) 3 % (1-7); LYMPHOCYTES # (AUTO) 1.71 x10^3/uL (1-3.4); LYMPHOCYTES % (AUTO) 22 % (22-44); MD NO; MEAN CORPUSCULAR HEMOGLOBIN 28.6 pg (27.5-34.5); MEAN CORPUSCULAR VOLUME 89.4 fL (81-97); MEAN PLATELET VOLUME 7.2 fL (7.4-10.4); MONOCYTES # (AUTO) 0.71 x10^3/uL (0.2-0.8); MONOCYTES % (AUTO) 9 % (2-9); NEUTROPHILS # (AUTO) 5.11 x10^3/uL (1.8-6.8); NEUTROPHILS % (AUTO) 66 % (42-75); PLATELET COUNT 456 x10^3/uL (130-400); RED CELL DISTRIBUTION WIDTH 18.9 % (9.4-14.8)
[2018-08-29 03:49] LABS: ANION GAP 3 mmol/L (5-15); CALCIUM 8.7 mg/dL (8.5-10.1); CHLORIDE 100 mmol/L (98-107); CREATININE 0.43 mg/dL (0.7-1.3); TRIGLYCERIDES 99 mg/dL (50-200)
[2018-08-29] MEDS: INSULIN REGULAR HIGH DOSE Q6H X 48HRS SQ-INSULIN SCH ×2 (03:59→11:00)
[2018-08-29] MEDS: LISINOPRIL 10 MG TABLET PO SCH (09:34)
[2018-08-29] MEDS: INSULIN GLARGINE 100 UNITS/ML, PEN SQ-INSULIN SCH (09:36)
[2018-08-29] MEDS ORDERED: [UNRECOGNIZED DRUG - OTHER] IV SCH (17:00)
[2018-08-29] MEDS ORDERED: DEXTROSE 70% IV SCH (17:00)
[2018-08-29] MEDS ORDERED: FAT EMUL IV SCH (17:00)
[2018-08-29] MEDS ORDERED: SMOF TPN IV SCH (17:00)
[2018-08-29] MEDS ORDERED: AMINO ACID 10% IV SCH (17:00)
== END 2018-08-29 13:44 | DRG 4 ==
LOC: ED 20:03 → EDIP 20:05 → 4EST 20:46 → 4NOR 08-02 06:50 → CCU 08-02 18:38
PROVIDERS: ADMIT Internal Medicine; ATTEND Internal Medicine
PROC: 0HBKXZX Excision of Right Lower Leg Skin, External Approach, Diagnostic (ICD-10-PCS; 2018-08-03)
PROC: 0T9B70Z Drainage of Bladder with Drainage Device, Via Natural or Artificial Opening (ICD-10-PCS; 2018-08-05)
PROC: 5A1955Z Respiratory Ventilation, Greater than 96 Consecutive Hours (ICD-10-PCS; 2018-08-07)
PROC: 0BH17EZ Insertion of Endotracheal Airway into Trachea, Via Natural or Artificial Opening (ICD-10-PCS; 2018-08-07)
PROC: 0B9J8ZX Drainage of Left Lower Lung Lobe, Via Natural or Artificial Opening Endoscopic, Diagnostic (ICD-10-PCS; 2018-08-08)
PROC: 0B9F8ZX Drainage of Right Lower Lung Lobe, Via Natural or Artificial Opening Endoscopic, Diagnostic (ICD-10-PCS; 2018-08-08)
PROC: 02HV33Z Insertion of Infusion Device into Superior Vena Cava, Percutaneous Approach (ICD-10-PCS; 2018-08-08)
PROC: 02HV33Z Insertion of Infusion Device into Superior Vena Cava, Percutaneous Approach (ICD-10-PCS; 2018-08-11)
PROC: B5181ZA Fluoroscopy of Superior Vena Cava using Low Osmolar Contrast, Guidance (ICD-10-PCS; 2018-08-11)
PROC: 0B113F4 Bypass Trachea to Cutaneous with Tracheostomy Device, Percutaneous Approach (ICD-10-PCS; principal; 2018-08-13 08:30)
PROC: 0B9F8ZX Drainage of Right Lower Lung Lobe, Via Natural or Artificial Opening Endoscopic, Diagnostic (ICD-10-PCS; 2018-08-15)
PROC: 02HV33Z Insertion of Infusion Device into Superior Vena Cava, Percutaneous Approach (ICD-10-PCS; 2018-08-24)
PROC: B548ZZA Ultrasonography of Superior Vena Cava, Guidance (ICD-10-PCS; 2018-08-24)
DX: A41.9 Sepsis, unspecified organism (principal); E43 Unspecified severe protein-calorie malnutrition; G04.90 Encephalitis and encephalomyelitis, unspecified; G93.41 Metabolic encephalopathy; J69.0 Pneumonitis due to inhalation of food and vomit; J96.01 Acute respiratory failure with hypoxia; N17.0 Acute kidney failure with tubular necrosis; R65.21 Severe sepsis with septic shock; E22.2 Syndrome of inappropriate secretion of antidiuretic hormone; E87.0 Hyperosmolality and hypernatremia; G61.0 Guillain-Barre syndrome; K22.10 Ulcer of esophagus without bleeding; K56.7 Ileus, unspecified; L03.115 Cellulitis of right lower limb; L03.116 Cellulitis of left lower limb; L03.317 Cellulitis of buttock; Z99.11 Dependence on respirator [ventilator] status; D63.8 Anemia in other chronic diseases classified elsewhere; E11.40 Type 2 diabetes mellitus with diabetic neuropathy, unspecified; Z68.30 Body mass index [BMI] 30.0-30.9, adult; Z88.8 Allergy status to other drugs, medicaments and biological substances; E78.5 Hyperlipidemia, unspecified; E87.6 Hypokalemia; H54.7 Unspecified visual loss; I10 Essential (primary) hypertension; I87.8 Other specified disorders of veins; K25.9 Gastric ulcer, unspecified as acute or chronic, without hemorrhage or perforation; K26.9 Duodenal ulcer, unspecified as acute or chronic, without hemorrhage or perforation; L73.9 Follicular disorder, unspecified; M19.90 Unspecified osteoarthritis, unspecified site; M85.80 Other specified disorders of bone density and structure, unspecified site; N40.1 Benign prostatic hyperplasia with lower urinary tract symptoms; R32 Unspecified urinary incontinence; R56.9 Unspecified convulsions; Z51.5 Encounter for palliative care; Z78.9 Other specified health status; Z83.3 Family history of diabetes mellitus; Z86.19 Personal history of other infectious and parasitic diseases; G70.9 Myoneural disorder, unspecified; I87.2 Venous insufficiency (chronic) (peripheral); L30.9 Dermatitis, unspecified
CPT/HCPCS: 36415; 36600; 73590; 74018; 77001; 77002; 82805; 84145; 86592; 87806; 99285; J3475; J3490; J7620; 31502; 31624; 36514; 36556; 36573; 62270; 70450; 70551; 71045; 76937; 80048; 80053; 80076; 80202; 80307; 81001; 81003; 82040; 82085; 82140; 82306; 82436; 82533; 82550; 82803; 82945; 82962; 83036; 83605; 83615; 83735; 83930; 83935; 83970; 84100; 84133; 84134; 84157; 84300; 84443; 84478; 84484; 85025; 85384; 85610; 85651; 86140; 86694; 86735; 86765; 86787; 86788; 86789; 87015; 87040; 87070; 87081; 87086; 87102; 87116; 87205; 87206; 87210; 87252; 87305; 88108; 88112; 88305; 88312; 88313; 89051; 93005; 93922; 93970; 94002; 94003; 94640; 96365; 96368; 99152; 99153; C1894; G0378; J0456; J0610; J0690; J0696; J1561; J1644; J1650; J1815; J2020; J2250; J2405; J2543; J2704; J3010; J3370; J3465; J3480; P9045; P9047; 29581-50; 92523-GN; C1750; C1751; G0475; J0360; J1200; J1642; J2060; J2370; J2765; J2930; J3420; J7030; J7040; J7050

== ENCOUNTER 2020-09-07 08:04 | Outpatient (CLI) | payer MEDICARE ==
[~2020-09-07 08:04] MED LIST: ASPI-963 PO; BISA10SU14 PR; CETI10TA32 PO; DOXY100T PO; ENAL1.2513 IVPush; ENOX40SY4 SQ; ERGO500017 PO; FURO20TA3 PO; GABA300C10 PO; GLIM1TAB7 PO; HYDR25TA6 PO; INSU100I13 SQ-INSULIN; INSU100V5 SQ-INSULIN; IPRA3AMP30 INLINE; LANO3.5O EACHEYE; LIDO10VI34 ENDO; LISI-167 PO; MAG30ORA PO; METF500T17 PO; ONDA4VIA60 IVPush; SIMV40TA20 PO; SPIR25TA5 PO; TAMS-11 PO; Tpn Per Pharmacy MC
== END 2020-09-07 23:59 | disposition home or self-care (01) ==
LOC: ROC 08:04
PROVIDERS: ATTEND Radiology Radiation Oncology
DX: C20 Malignant neoplasm of rectum (principal)
CPT/HCPCS: 99214; G0463

== ENCOUNTER → 2020-09-20 | Outpatient (CLI) | payer MEDICARE ==
[~2020-09-20] MED LIST changes: +REGADENOSON 0.4 MG/5 ML SYRINGE ONE
== END | disposition home or self-care (01) ==
LOC: CVU 06:18
PROVIDERS: ATTEND Internal Medicine Cardiovascular Disease
DX: Z01.810 Encounter for preprocedural cardiovascular examination (principal); I10 Essential (primary) hypertension; E11.9 Type 2 diabetes mellitus without complications; I21.19 ST elevation (STEMI) myocardial infarction involving other coronary artery of inferior wall; E78.00 Pure hypercholesterolemia, unspecified; I08.0 Rheumatic disorders of both mitral and aortic valves
CPT/HCPCS: 78452; 93017; 93306; 93356; A9502; J2785

== ENCOUNTER → 2020-11-28 | Outpatient (CLI) | payer MEDICARE ==
[~2020-11-28] MED LIST changes: -REGADENOSON 0.4 MG/5 ML SYRINGE ONE
== END | disposition home or self-care (01) ==
LOC: ROC 07:30
PROVIDERS: ATTEND Radiology Radiation Oncology
DX: Z08 Encounter for follow-up examination after completed treatment for malignant neoplasm (principal); Z85.048 Personal history of other malignant neoplasm of rectum, rectosigmoid junction, and anus; I10 Essential (primary) hypertension; E78.00 Pure hypercholesterolemia, unspecified; E11.9 Type 2 diabetes mellitus without complications
CPT/HCPCS: 99212; G0463